=== PATIENT | female | born 1960 | race African-American/Black ===

== ENCOUNTER 2022-10-03 08:46 | Outpatient (REF) | payer OTHER, SELFPAY ==
--- NOTE | ~2022-10-03 | MR_ITS ---
EXAMINATION: MR BRAIN WITHOUT CONTRAST CLINICAL INFORMATION: Seizure disorder. COMPARISON: None. TECHNIQUE: Multiplanar, multisequence imaging of the brain was performed without contrast. FINDINGS: No diffusion abnormalities are identified to suggest an acute infarct. There is [id number] generalized parenchymal volume loss and concordant ex vacuo dilatation of the ventricles. No mass effect or midline shift is seen. No brain parenchymal signal abnormality is noted. No extra-axial fluid collections are seen. The brainstem and cerebellum are normal. The gradient refocused acquisition is normal. The hippocampi are normal in appearance. The craniovertebral junction, marrow signal, and midline structures are normal. The major intracranial flow voids at the level of the [place] are preserved. The dural venous sinus flow voids are maintained. Mild ethmoid sinus mucosal thickening noted. There is a mild amount of fluid in the right mastoid air cells. MR/MR head/brain wo con IMPRESSION: No acute intracranial process. [id number] generalized parenchymal volume loss with concordant ex vacuo dilatation of the ventricles. No hippocampal pathology or epileptogenic focus identified.
== END 2022-10-03 08:47 | disposition home or self-care (01) ==
LOC: HO.MRI 08:46
PROVIDERS: PCP Internal Medicine; Visit Provider Psychiatry & Neurology Neurology
DX: G40.909 Epilepsy, unspecified, not intractable, without status epilepticus (principal)
CPT/HCPCS: 70551

== ENCOUNTER 2023-02-04 13:17 | Outpatient (AMB) | payer OTHER, SELFPAY ==
--- NOTE | 2023-02-04 13:23 | A.OFFVIS_ITS ---
Intake Vital Signs 02/04/23 13:34 Height 5 ft 6 in Weight 223 lb BMI 36.0 BP 148/85 H Blood Pressure Location Lt brachial Position Sitting Pulse 82 Pulse Source Pulse Oximeter Temp 98.5 F Temp Source Oral Pulse Oximetry (%) 98 Intake Visit Reasons: Ref [facility] [address] recurrent UTI Allergies sulindac Allergy (Severe, Verified 02/04/23 13:41) Unknown HPI Ref [facility] [address] recurrent UTI HPI Details She is a referral from [facility] for recurrent painful UTI. She has seen Dr Hong of [place] there in past. She has shaking chills with frequent urination about every three weeks and recurs after takes antibiotics. She has taken Bactrim recently and Amoxicillin. She takes Estrace three times a wekk. She sees Dr at [facility]. She has had seizures and sees Neurology. [facility] Medical History Seizure disorder Recurrent UTI Review of Systems Const All systems reviewed & are unremarkable except as noted in HPI and below Physical Exam Vital Signs: Last Vital Signs Temp 98.5 F 02/04/23 13:34 Pulse 82 02/04/23 13:34 BP 148/85 H 02/04/23 13:34 Pulse Ox 98 02/04/23 13:34 BMI result Body Mass Index 36.0 Const General: cooperative Orientation/consciousness: patient oriented x3 HEENT Head: Yes normal to inspection Mouth: Normal oral and palatal mucosa present Eyes General: appearance normal, both eyes and all related structures Pupils: Equal, round and reactive pupils present Resp Effort & Inspection: normal respiratory effort Cardio Rate: regular rate Rhythm: regular rhythm GI Palpation (GI): Soft to palpation and nontender General: Yes no CVA tenderness Back/Spine/Pelvis Back: no CVA tenderness Skin General skin exam: no rashes or lesions noted Neuro General: patient oriented x3 Cranial nerves: Yes CN's II-XII intact bilaterally and Yes Equal, round and reactive pupils present Extrem General: Yes normal to inspection Psych Appearance: grossly normal Assessment & Plan Assessment & Plan (1) Recurrent UTI: Comment: Recurrent UTI E coli has been seen Antibiotic prophylaxis unlikely to work as resistance will develop. Acidic urinary environment should be encouraged. Also immune system health should be checked. Code(s): N39.0 - Urinary tract infection, site not specified Plan: No antibiotic prophylaxis. Will check urine culture and if negative urinary PCR testing. Methenamine 1 g po bid for acidification. Continue Estrace prn need if helping. Check HIV,Lyme antibody,IgA,IgG and CD4 count. Check urine culture today since symptomatic. Return in one month Call us prn need. Orders: Orders Immunoglobulin A 02/04/23 N39.0 - Urinary tract infection, site not specified HIV Ab/Ag 02/04/23 N39.0 - Urinary tract infection, site not specified Hepatitis C Antibody 02/04/23 N39.0 - Urinary tract infection, site not specified UA w Microscopic 02/04/23 N39.0 - Urinary tract infection, site not specified Urine Culture 02/04/23 N39.0 - Urinary tract infection, site not specified Immunoglobulin G 02/04/23 N39.0 - Urinary tract infection, site not specified Lymphocyte Subset Panel 3 02/04/23 N39.0 - Urinary tract infection, site not specified Hepatitis B Surface Antigen 02/04/23 N39.0 - Urinary tract infection, site not specified Lyme IgG/IgM w/reflex to WB 02/04/23 G40.909 - Epilepsy, unspecified, not intractable, without status epilepticus Syphilis Screen 02/04/23 N39.0 - Urinary tract infection, site not specified Medications: New methenamine hippurate 1 g PO BID 30 days 60 tabs 1RF sulfamethoxazole-trimethoprim 800-160 mg (Bactrim DS) 1 tab PO BID 10 days 20 tabs 0RF Coding Level of Care Code New Pt Level 3 (84886) Diagnoses Recurrent UTI N39.0
[2023-02-04 13:34] VITALS: BP 148/85; PULSE 82; TEMP 36.9; O2SAT 98; BMI 36.0
== END 2023-02-04 14:15 | disposition home or self-care (01) ==
PROVIDERS: PCP Internal Medicine; Visit Provider Internal Medicine
DX: N39.0 Urinary tract infection, site not specified (principal)
CPT/HCPCS: 99203

== ENCOUNTER 2023-02-04 13:17 | Outpatient (REF) | payer OTHER, SELFPAY ==
[2023-02-04 16:22] LABS: Appearance Urine Clear; Color Urine Yellow; Glucose Urine UA Negative (Negative); Leukocyte Esterase Urine Small (1+) (Negative); Nitrite Urine Positive (Negative); PH 6.5 (5.0-9.0); Specific Gravity - Urine 1.015 (1.005-1.025); UMIC TRIGGER UA YES; Urine Blood Trace (Negative); Urine Ketones Negative (Negative); Urine Protein Negative (Neg-Trace)
[2023-02-04 16:27] LABS: Bacteria Urine 4+ (None Seen); Hyaline Casts Urine 0-2 /LPF (0-2); RBC Urine 0-2 /HPF (0-2); Squamous Epithelial Cell Urine 0-2 /HPF (0-2)
[2023-02-05 07:54] LABS: Syphilis Screen Nonreactive (Nonreactive)
[2023-02-05 08:11] LABS: HBsAGNum1 0.24 S/CO (0.00-0.99); HIV AB/AG Nonreactive (Nonreactive); HIV Num 1 0.05 S/CO (0.00-0.99); Hepatitis B Surface Antigen Negative (Negative); ~HepC Num1 0.17 S/CO (0.00-0.79); ~Hepatitis C Antibody Nonreactive (Nonreactive)
[2023-02-05 10:49] LABS: Absolute CD3 Count 1727 cells/uL (840-3060); Absolute CD4 Count 1168 cells/uL (490-1740); Absolute CD8 Count 537 cells/uL (180-1170); Absolute Lymphocytes 2276 cells/uL (850-3900); CD4 CD8 Ratio 2.17 (0.86-5.00); Percent CD3 Cells 76 % (57-85); Percent CD4 Cells 51 % (30-61); Percent CD8 Cells 24 % (12-42)
[2023-02-06 10:54] LABS: Lyme Abs Screen <0.90 index
[2023-02-06 16:43] LABS: Immunoglobulin A 225 mg/dL (47-310); Immunoglobulin G 1300 mg/dL (600-1640)
== END 2023-02-04 13:18 | disposition home or self-care (01) ==
LOC: HO.LAB 13:17
PROVIDERS: PCP Internal Medicine; Visit Provider Internal Medicine
DX: N39.0 Urinary tract infection, site not specified (principal); G40.909 Epilepsy, unspecified, not intractable, without status epilepticus; Z87.440 Personal history of urinary (tract) infections
CPT/HCPCS: 36415; 81001; 82784; 86359; 86360; 86617; 86618; 86780; 86803; 87086; 87088; 87186; 87340; 87389; 99202

== ENCOUNTER 2023-10-08 14:17 | Outpatient (REF) | payer OTHER, SELFPAY ==
[2023-10-08 14:48] LABS: MANUAL DIFF FLAG NO
[2023-10-08 14:54] LABS: Basophils Percent Auto 0.7 % (0-2); Eosinophils Absolute Auto 0.2 X10*3/uL (0.0-0.4); Hematocrit 35.7 % (37.0-47.0); Hemoglobin 11.4 g/dl (12.0-16.0); Imm Gran Abs Auto 0.01 X10*3/uL (0.00-0.03); Imm Gran Pct Auto 0.2 % (0.0-0.4); Lymphocytes Absolute Auto 1.9 X10*3/uL (1.2-4.9); Lymphocytes Percent Auto 33.3 % (20-40); Mean Corpuscular HGB Conc 31.9 g/dl (31.0-35.0); Mean Corpuscular Hemoglobin 29.4 pg (27.0-33.0); Mean Platelet Volume 9.5 fL (9.4-12.3); Monocytes Absolute Auto 0.7 X10*3/uL (0.1-1.2); Monocytes Percent Auto 11.5 % (2-11); Neutrophils Percent Auto 51.3 % (45-73); Platelet Count 342 X10*3/uL (160-400); Red Blood Count 3.88 X10*6/uL (4.20-5.50); Red Cell Distribution Width 17.1 % (11.0-16.0); White Blood Count 5.8 X10*3/uL (4.8-10.8)
[2023-10-08 15:59] LABS: Alanine Aminotransferase 6 U/L (0-31); Albumin Level 3.8 g/dL (3.5-5.0); Alkaline Phosphatase 100 U/L (39-117); Anion Gap 14 (12-20); Aspartate Amino Transferase 13 U/L (5-31); Bilirubin Total 0.4 mg/dL (0.0-1.0); Blood Urea Nitrogen 20 mg/dL (9-16); Calcium 9.1 mg/dL (8.4-10.2); Carbon Dioxide 22 mmol/L (22-29); Chloride 110 mmol/L (96-108); Estimated Glomerular Filt Rate 53; Glucose Random 95 mg/dL (60-115); Potassium 4.1 mmol/L (3.3-5.1); Sodium 142 mmol/L (135-145); Total Protein 7.3 g/dL (6.5-8.0)
[2023-10-08 16:15] LABS: T4 Thyroxine 6.2 ug/dL (4.5-12.0); Thyroid Stimulating Hormone 0.41 uIU/mL (0.32-4.0)
[2023-10-08 16:25] LABS: Folate 4.3 ng/mL (> or = 4.0); Vitamin B12 691 pg/mL (200-900)
== END 2023-10-08 14:18 | disposition home or self-care (01) ==
LOC: HO.LAB 14:17
PROVIDERS: PCP Internal Medicine; Visit Provider Registered Nurse
DX: G31.84 Mild cognitive impairment of uncertain or unknown etiology (principal)
CPT/HCPCS: 36415; 80053; 82607; 82746; 84436; 84443; 85025

== ENCOUNTER 2023-11-11 07:41 | Outpatient (AMB) | payer OTHER, SELFPAY ==
--- NOTE | 2023-11-11 07:53 | A.OFFVIS_ITS ---
Vital Signs 11/11/23 07:55 Height 5 ft 6 in Weight 194 lb 8 oz BMI 31.4 BP 98/66 Blood Pressure Location Rt brachial Position Sitting Respiration 16 Pulse 80 Pulse Source Pulse Oximeter Pulse Oximetry (%) 98 Oxygen Delivery Method Room Air Intake Visit Reasons: NPV: Seizure Disorder Intake Note: New pt presents to the office for consultation for seizure disorder. Adult Nurse Practitioner Required: No Allergies sulindac Allergy (Severe, Verified 11/11/23 07:55) Unknown Medication List - Last Reconciled 11/11/23 by Alicia Suárez MD gabapentin 600 mg PO BID levetiracetam 500 mg PO BID methenamine hippurate 1 g PO BID 30 days HPI Comments Details: 62y/o Right handed female comes for further management of seizures. she also has familial tremors.she is accompanied by her sister who helps with history. SHe started having seizures in 2021 - she was admitted at [facility] initially and was started on levetiracetam 250mg bid after her second seizure. she had about 10 seizures and she was seen by . Her levetiracetam was increased to 500mg bid.she still had seizures - 5 in 2022 . Prior to 2021 she had multiple episodes of passing out. she had 2 seizures in 2023 her levetiracetam dose was increased to 750 mg bid but she is not able to tolerate.she is on 500mg bid now. Her eyes moves to left , hands shake , funny noise , passes out for 1-2 minutes. she wakes up and argues that she did not have a seizure, refuses to go to hospital .she had 1 episode of urinary incontinence and denies tongue biting. she has mood disorder - does not have a psychiatry or psyhcology she does not drive [facility] Medical History Anxiety Depression Benign familial tremor Seizure disorder Recurrent UTI Surgical History H/O gastric bypass H/O: knee surgery Social History Household Members: Family Housing: Apartment Alcohol intake: never Patient Tobacco Use Status: Never used Tobacco Physical Exam Vital Signs: Last Vital Signs Pulse 80 11/11/23 07:55 Resp 16 11/11/23 07:55 BP 98/66 11/11/23 07:55 Pulse Ox 98 11/11/23 07:55 Oxygen Delivery Method Room Air 11/11/23 07:55 BMI result Body Mass Index 31.4 Const General: cooperative, healthy appearing, comfortable and anxious Nutritional Appearance: average body habitus Orientation/consciousness: patient oriented x3 Eyes Pupils: Equal, round and reactive pupils present Neuro Other: mild tremors left UE General: patient oriented x3, tone normal, moves all extremities and no focal motor deficits Cranial nerves: Yes Facial sensation intact/muscles of mastication intact, Yes Equal, round and reactive pupils present, Yes Bilaterally intact EOM present, Yes Nystagmus not present, Yes Normal facial strength present, Yes Midline tongue present, Yes Symmetric palate elevation present and Yes Ability to bilaterally elevate shoulders present Cognition (Neuro): normal cognition Gait exam (Neuro): Normal gait present Motor exam (neuro): 5/5 motor strength present throughout and Normal motor muscle tone present throughout Deep tendon reflexes (DTR's): Right triceps reflex intensity grade: 2+, Left triceps reflex intensity grade: 2+, Rt Biceps (C5, C6): 2+, Left biceps reflex intensity grade: 2+, Right brachioradialis reflex intensity grade: 2+, Left brachioradialis reflex intensity grade: 2+, Right patellar reflex intensity grade: 2+ and Left patellar reflex intensity grade: 2+ Coordination: [id number] test normal Assessment & Plan Assessment & Plan (1) Seizure disorder: Comment: poorly controlled Code(s): G40.909 - Epilepsy, unspecified, not intractable, without status epilepticus Category: Medical (2) Benign familial tremor: Comment: mild Code(s): G25.0 - Essential tremor Category: Medical (3) Depression: Code(s): F32.A - Depression, unspecified Category: Medical (4) Anxiety: Code(s): F41.9 - Anxiety disorder, unspecified Category: Medical Plan She is concerned about behavioral side effects of levetiracetam and has decreased the dose to 500mg bid I will trial her on tegretol XR 200mg bid and titrate upto 800 mg bid and wean of levetiracetam continue levetiracetam 500mg bid for now Pyridoxine 50mg qd labs form PCP for review Reviewed MRI EEG Refer to [facility] epilepsy clinic [facility] for mood Orders: Orders EEG electroencephalogram Today G40.909 - Epilepsy, unspecified, not intractable, without status epilepticus Referrals Neurology Referral G40.909 - Epilepsy, unspecified, not intractable, without status epilepticus Medications: New pyridoxine (vitamin B6) 50 mg PO DAILY 30 tabs 6RF carbamazepine ER (Tegretol XR) 200 mg PO BID 60 tabs 6RF Coding Level of Care Code New Pt Level 4 (42936) Complex EM visit Add On G2211 Diagnoses Seizure disorder G40.909 Benign familial tremor G25.0 Depression F32.A Anxiety F41.9
[2023-11-11 07:55] VITALS: BP 98/66; PULSE 80; RESP 16; O2SAT 98; BMI 31.4
== END 2023-11-11 08:54 | disposition home or self-care (01) ==
PROVIDERS: PCP Internal Medicine; Visit Provider Psychiatry & Neurology Neurology
DX: G40.909 Epilepsy, unspecified, not intractable, without status epilepticus (principal); G25.0 Essential tremor; F32.A Depression, unspecified; F41.9 Anxiety disorder, unspecified
CPT/HCPCS: 99204; G2211

== ENCOUNTER → 2023-11-11 07:41 | Outpatient (BNVA) | payer OTHER, SELFPAY | PROVIDERS: PCP Internal Medicine; Visit Provider Psychiatry & Neurology Neurology | DX: G40.909 Epilepsy, unspecified, not intractable, without status epilepticus (principal); G25.0 Essential tremor; F32.A Depression, unspecified; F41.9 Anxiety disorder, unspecified | CPT/HCPCS: 99202 ==

== ENCOUNTER 2023-12-17 08:18 | Outpatient (AMB) | payer OTHER, SELFPAY ==
[2023-12-17 08:22] VITALS: BP 132/88; BMI 31.3
--- NOTE | 2023-12-17 08:22 | A.OFFVIS_ITS ---
Vital Signs 12/17/23 08:22 Height 5 ft 6 in Weight 194 lb BMI 31.3 BP 132/88 Blood Pressure Location Rt brachial Position Sitting Intake Visit Reasons: 1 mo f/u Intake Note: Patient presents for follow up Allergies sulindac Allergy (Severe, Verified 12/17/23 08:24) Unknown Medication List - Last Reconciled 12/17/23 by Alicia Suárez MD carbamazepine ER (Tegretol XR) 200 mg PO BID gabapentin 600 mg PO BID levetiracetam 500 mg PO BID methenamine hippurate 1 g PO BID 30 days pyridoxine (vitamin B6) 50 mg PO DAILY HPI Comments Details: 63y/o Right handed female comes for follow up of seizures.she was started on te gretol few weeks ago but she could not tolerate - increased tremors, caused dizziness .she is scheduled at [facility] epilepsy clinic Feb 242024.No seizures since last visit. she has not seen a psychiatrist or psychologist yet History form initial visit- she also has familial tremors.she is accompanied by her sister who helps with history. SHe started having seizures in 2021 - she was admitted at [facility] initially and was started on levetiracetam 250mg bid after her second seizure. she had about 10 seizures and she was seen by . Her levetiracetam was increased to 500mg bid.she still had seizures - 5 in 2022 . Prior to 2021 she had multiple episodes of passing out. she had 2 seizures in 2023 her levetiracetam dose was increased to 750 mg bid but she is not able to tolerate.she is on 500mg bid now. Her eyes moves to left , hands shake , funny noise , passes out for 1-2 minutes. she wakes up and argues that she did not have a seizure, refuses to go to hospital .she had 1 episode of urinary incontinence and denies tongue biting. she has mood disorder - does not have a psychiatry or psyhcology she does not drive [facility] Medical History Anxiety Depression Benign familial tremor Seizure disorder Recurrent UTI Surgical History H/O gastric bypass H/O: knee surgery Social History Household Members: Family Housing: Apartment Alcohol intake: never Patient Tobacco Use Status: Never used Tobacco Physical Exam Vital Signs: Last Vital Signs BP 132/88 12/17/23 08:22 BMI result Body Mass Index 31.3 Const General: cooperative, healthy appearing, comfortable and anxious Nutritional Appearance: average body habitus Orientation/consciousness: patient oriented x3 Eyes Pupils: Equal, round and reactive pupils present Neuro Other: mild tremors left UE General: patient oriented x3, tone normal, moves all extremities and no focal motor deficits Cranial nerves: Yes Facial sensation intact/muscles of mastication intact, Yes Equal, round and reactive pupils present, Yes Bilaterally intact EOM present, Yes Nystagmus not present, Yes Normal facial strength present, Yes Midline tongue present, Yes Symmetric palate elevation present and Yes Ability to bilaterally elevate shoulders present Cognition (Neuro): normal cognition Gait exam (Neuro): Normal gait present Motor exam (neuro): 5/5 motor strength present throughout and Normal motor muscle tone present throughout Coordination: [id number] test normal Assessment & Plan Assessment & Plan (1) Seizure disorder: Comment: poorly controlled Code(s): G40.909 - Epilepsy, unspecified, not intractable, without status epilepticus Category: Medical (2) Benign familial tremor: Comment: mild Code(s): G25.0 - Essential tremor Category: Medical (3) Depression: Code(s): F32.A - Depression, unspecified Category: Medical (4) Anxiety: Code(s): F41.9 - Anxiety disorder, unspecified Category: Medical Plan She is concerned about behavioral side effects of levetiracetam and has decreased the dose to 500mg bid I will trial her on lamotrigine 25 mg bid continue levetiracetam 500mg bid for now Pyridoxine 50mg qd labs form PCP for review Reviewed MRI EEG [facility] epilepsy clinic Feb 26 2024 N for mood Multiple sensitivities to medications- Depakote Tegretol Trazodone Medications: New lamotrigine 25 mg PO BID 60 tabs 0RF 30 days Discontinued carbamazepine ER (Tegretol XR) Discontinued Reason: Patient no longer taking 200 mg PO BID 60 tabs 6RF Coding Level of Care Code Est Pt Level 4 (40984) Complex EM visit Add On G2211 Diagnoses Seizure disorder G40.909 Benign familial tremor G25.0 Depression F32.A Anxiety F41.9
== END 2023-12-17 08:56 | disposition home or self-care (01) ==
PROVIDERS: PCP Internal Medicine; Visit Provider Psychiatry & Neurology Neurology
DX: G40.909 Epilepsy, unspecified, not intractable, without status epilepticus (principal); G25.0 Essential tremor; F32.A Depression, unspecified; F41.9 Anxiety disorder, unspecified
CPT/HCPCS: 99214; G2211

== ENCOUNTER → 2023-12-17 08:18 | Outpatient (BNVA) | payer OTHER, SELFPAY | PROVIDERS: PCP Internal Medicine; Visit Provider Psychiatry & Neurology Neurology | DX: G40.909 Epilepsy, unspecified, not intractable, without status epilepticus (principal); G25.0 Essential tremor; F32.A Depression, unspecified; F41.9 Anxiety disorder, unspecified | CPT/HCPCS: 99212 ==

== ENCOUNTER 2024-02-09 08:48 | Outpatient (AMB) | payer OTHER, SELFPAY ==
--- NOTE | 2024-02-09 08:50 | MHC.OFFVIS ---
Vital Signs 02/09/24 08:51 Height 5 ft 6 in Weight 199 lb BMI 32.1 BP 102/78 Blood Pressure Location Lt brachial Position Sitting Pulse 81 Pulse Source Pulse Oximeter Pulse Oximetry (%) 97 Oxygen Delivery Method Room Air Intake Visit Reasons: 2mon follow up Manager Private Required: No Accompanied by: Self / Same As Patient Allergies sulindac Allergy (Severe, Verified 02/09/24 08:54) Unknown Do you need a note to return to daycare/school/sports/work: No HPI Comments Details: 63 year old female f/u of seizure like activity. Denies any seizures since her last visit in 12/2023. June2023 was her last seizure, lasted seconds, gets dizzy and fell to the ground, then feels disoriented, sister says her eyes roll up to the back of head r. side and two episodes of incontinence. She denies biting tongue and or drooling. She has pauses in speech, cognitive decline, forgetful, history of familial benign tremors bilaterally hands. Writes down everything she needs to accomplish, tasks, shopping lists, medicines. Frustrated with her speech and feels like she is not herself. Lamictal 25mg PO BID makes her sweat profusively, nausea, dizziness, gagging reflex. She takes Keppra and wants to continue this one 500mg PO BID. Goes to sleep at 11 and wakes up at six with two bathroom breaks, fragmented sleep, wakes up confused with morning headaches that last for hours and excessive day time fatigue. Migraines for the last 2 weeks frontal, migrate to the back of head, pulsating. Denies photophobia, phonophobia or auras. Denies parasomnias, hallucinations, abnormal sleep behavior. Mood is okay. Diet is poor, and sleep fragmented d/t some familial concerns with her children. [facility] - pscychology would like a referral. She is motivated and does word puzzles, suduko and wants to start volunteering but has no energy. Disabled lives alone. 12/2023 EEG [facility] Normal did not capture any electrical discharges or activities. Low voltage anteriorly/ posteriorly, however normal EEG. Holter EEG - possilby brain damage from falls - per Dr. Durán MRI 09/2022 [facility] Normal MRI with some volume loss, normal aging changes. [facility] Medical History Anxiety Depression Benign familial tremor Seizure disorder Recurrent UTI Surgical History H/O gastric bypass H/O: knee surgery Social History Household Members: Family Housing: Apartment Alcohol intake: never Patient Tobacco Use Status: Never used Tobacco Review of Systems Const All systems reviewed & are unremarkable except as noted in HPI and below Physical Exam Vital Signs: Last Vital Signs Pulse 81 02/09/24 08:51 BP 102/78 02/09/24 08:51 Pulse Ox 97 02/09/24 08:51 Oxygen Delivery Method Room Air 02/09/24 08:51 BMI result Body Mass Index 32.1 Const General: cooperative, comfortable and no acute distress Nutritional Appearance: average body habitus and obese HEENT Face and sinus: Yes face symmetric Teeth and gingiva: other ([place] score of 4) Eyes Pupils: Equal, round and reactive pupils present Neck Neck: Yes full ROM Resp Effort & Inspection: normal respiratory effort and able to speak in complete sentences Neuro Cranial nerves: Yes CN's II-XII intact bilaterally, Yes Facial sensation intact/muscles of mastication intact, Yes Equal, round and reactive pupils present, Yes Normal accommodation reflex present and Yes Bilaterally intact EOM present Motor exam (neuro): 5/5 motor strength present throughout and Normal motor muscle tone present throughout Deep tendon reflexes (DTR's): Right triceps reflex intensity grade: 2+, Left triceps reflex intensity grade: 2+, Rt Biceps (C5, C6): 2+, Left biceps reflex intensity grade: 2+, Right brachioradialis reflex intensity grade: 2+, Left brachioradialis reflex intensity grade: 2+, Right patellar reflex intensity grade: 2+ and Left patellar reflex intensity grade: 2+ Results Reviewed Results Reviewed: MRI 2022 Normal MRI [facility] EEG 12/2023 Holter monitor - no electrical activity Low voltage anteriorly / posteriorly. Labs UTI - chronic Assessment & Plan Assessment & Plan (1) Migraines: Code(s): G43.909 - Migraine, unspecified, not intractable, without status migrainosus Category: Medical Qualifiers: Migraine type: unspecified Qualified Code(s): G43.919 - Migraine, unspecified, intractable, without status migrainosus (2) Seizure disorder: Comment: poorly controlled Code(s): G40.909 - Epilepsy, unspecified, not intractable, without status epilepticus Category: Medical (3) Fatigue due to sleep pattern disturbance: Code(s): R53.83 - Other fatigue; G47.9 - Sleep disorder, unspecified Category: Medical (4) Anxiety: Code(s): F41.9 - Anxiety disorder, unspecified Category: Medical Plan N - CBTI Anxiety Stress management and coping strategies to minimize triggers. Sleep Study Polysomnograph in lab, patient has seizure like activity disorder. Patient education: Getting 7-8 hours of sleep, eating a well balanced diet and recognizing triggers will help to avoid confusion, minimize stress. Getting fresh air, walking for 10 - 30 min daily, will help to keep you actively engaged with your social support group. Sumatriptan 25mg PO as needed with onset of migraine, may take one more tablet within 2-4 hours if migraine does not abort. Do not exceed more than 2 tablets in a 24 hour period. Migraines, use a migraine diary and record day and time of migraines and how long they last. Follow up after sleep study. Call the office or send a portal message with questions. Tegretol did not work well. Lamictal did not work well. N/V/ Dizziness and sweating, gag reflex. Will continue on Keppra 500mg PO BID as she has been seizure free. Orders: Orders RT PSG in-lab sleep study Today G25.0 - Essential tremor, G40.909 - Epilepsy, unspecified, not intractable, without status epilepticus Referrals Behavioral Health Referral F41.9 - Anxiety disorder, unspecified, G47.9 - Sleep disorder, unspecified, R53.83 - Other fatigue Medications: New sumatriptan succinate Take one tablet at the onset of migraine. If the headache does not abort you may take one more tablet with in 2-4 hours. Do not exceed 2 tablets in a 24 hour period. 25 mg PO ONCE 30 days PRN 14 tabs 0RF migraine headache G43.909 - Migraine, unspecified, not intractable, without status migrainosus Changed From levetiracetam 500 mg PO BID To levetiracetam 500 mg PO BID daily. 500 mg PO BID 60 tabs 3RF Coding Level of Care Code Est Pt Level 4 (61606) Diagnoses Intractable migraine without status migrainosus, unspecified migraine type G43.919 Migraine type: unspecified Seizure disorder G40.909 Fatigue due to sleep pattern disturbance R53.83; G47.9 Anxiety F41.9 Time Spent (min) 30 Comment Worsening
[2024-02-09 08:51] VITALS: BP 102/78; PULSE 81; O2SAT 97; BMI 32.1
== END 2024-02-09 09:44 | disposition home or self-care (01) ==
PROVIDERS: PCP Internal Medicine; Visit Provider Physician Assistant Medical
DX: G43.919 Migraine, unspecified, intractable, without status migrainosus (principal); G40.909 Epilepsy, unspecified, not intractable, without status epilepticus; R53.83 Other fatigue; G47.9 Sleep disorder, unspecified; F41.9 Anxiety disorder, unspecified
CPT/HCPCS: 99214

== ENCOUNTER → 2024-02-09 08:48 | Outpatient (BNVA) | payer OTHER, SELFPAY | PROVIDERS: PCP Internal Medicine; Visit Provider Physician Assistant Medical | DX: G43.919 Migraine, unspecified, intractable, without status migrainosus (principal); G40.909 Epilepsy, unspecified, not intractable, without status epilepticus; R53.83 Other fatigue; G47.9 Sleep disorder, unspecified; F41.9 Anxiety disorder, unspecified | CPT/HCPCS: 99212 ==

== ENCOUNTER 2024-06-10 09:13 | Outpatient (AMB) | payer OTHER, SELFPAY ==
[2024-06-10 09:25] VITALS: BP 106/74; PULSE 85; O2SAT 96; BMI 31.5
--- NOTE | 2024-06-10 09:25 | A.OFFVIS_ITS ---
Vital Signs 06/10/24 09:25 Height 5 ft 6 in Weight 195 lb BMI 31.5 BP 106/74 Blood Pressure Location Lt brachial Position Sitting Pulse 85 Pulse Source Pulse Oximeter Pulse Oximetry (%) 96 Oxygen Delivery Method Room Air Intake Visit Reasons: 4 mo follow up Intake Note: patient following up sleep study not done per OF patient was unable to contact after several attempts. Patient states both hands have start having tremors and also her face has at time spasms. Allergies sulindac Allergy (Severe, Verified 06/10/24 09:27) Unknown HPI Comments Details: 63 year old female f/u of seizure like activity, is a patient of Dr. Osorio at [place]. She denies any seizure like activiity since 06/2023 and she is taking Keppra 500mg PO BID. She would like to change her PCP to [facility]. She was not able to complete her sleep study due to pain and recovering from a cholecystectomy at [facility] April 2024. She goes to sleep at 11pm and wakes up at 6am, confused and disoriented in the morning, with headaches that last up to 2 hours. She continues to have fragmented sleep and excessive daytime fatigue. She says June2023 was her last seizure, lasted seconds, she got dizzy and fell to the ground, then felt disoriented, her sister says her eyes rolled up to the back of head r. side and two episodes of urinary incontinence. She denies biting tongue and or drooling. She has pauses in speech, gets frustrated and feels like she is not herself, reports cognitive decline, seems to be very forgetful, has to write everything down if she is to accomplish completing any tasks she needs shopping lists and reminders, she lately has been forgetting to take her medication. She has a history of familial benign tremors bilaterally hands. Migraines for the last 2 weeks frontal, migrate to the back of head, pulsating.Denies photophobia, phonophobia or auras. Denies parasomnias, hallucinations, abnormal sleep behavior. Her mood is irritable today, her diet is poor, and she says I know I need to complete my sleep study . She is motivated and does word puzzles, suduko and wants to start volunteering but has no energy. She is disabled lives alone and we spoke about health bracelet or access to emergency services. She says she has carpal tunnels syndrome bilaterally and tried b12, b6, and b1 and it was not helpful, her hands still go numb at night and twitch especially if she is texting. She has a family history of dementia father and will look into testing at next visit. [facility] Medical History Anxiety Depression Benign familial tremor Seizure disorder Recurrent UTI Surgical History Hx of cholecystectomy H/O gastric bypass H/O: knee surgery Social History Household Members: Family Housing: Apartment Alcohol intake: never Patient Tobacco Use Status: Never used Tobacco Physical Exam Vital Signs: Last Vital Signs Pulse 85 06/10/24 09:25 BP 106/74 06/10/24 09:25 Pulse Ox 96 06/10/24 09:25 Oxygen Delivery Method Room Air 06/10/24 09:25 BMI result Body Mass Index 31.5 Const General: cooperative, comfortable and no acute distress Nutritional Appearance: average body habitus and obese HEENT Face and sinus: Yes face symmetric Teeth and gingiva: other ([place] score of 4) Eyes Pupils: Equal, round and reactive pupils present Neck Neck: Yes full ROM Resp Effort & Inspection: normal respiratory effort and able to speak in complete sentences Neuro Cranial nerves: Yes CN's II-XII intact bilaterally, Yes Facial sensation intact/muscles of mastication intact, Yes Equal, round and reactive pupils present, Yes Normal accommodation reflex present and Yes Bilaterally intact EOM present Motor exam (neuro): 5/5 motor strength present throughout and Normal motor muscle tone present throughout Deep tendon reflexes (DTR's): Right triceps reflex intensity grade: 2+, Left triceps reflex intensity grade: 2+, Rt Biceps (C5, C6): 2+, Left biceps reflex intensity grade: 2+, Right brachioradialis reflex intensity grade: 2+, Left brachioradialis reflex intensity grade: 2+, Right patellar reflex intensity grade: 2+ and Left patellar reflex intensity grade: 2+ Assessment & Plan Assessment & Plan (1) Twitching: Code(s): R25.3 - Fasciculation Category: Medical (2) Sleep difficulties: Code(s): G47.9 - Sleep disorder, unspecified Category: Medical (3) Migraines: Code(s): G43.909 - Migraine, unspecified, not intractable, without status migrainosus Category: Medical Qualifiers: Migraine type: unspecified Qualified Code(s): G43.919 - Migraine, unspecified, intractable, without status migrainosus (4) Seizure disorder: Comment: poorly controlled Code(s): G40.909 - Epilepsy, unspecified, not intractable, without status epilepticus Category: Medical (5) Fatigue due to sleep pattern disturbance: Code(s): R53.83 - Other fatigue; G47.9 - Sleep disorder, unspecified Category: Medical (6) Anxiety: Code(s): F41.9 - Anxiety disorder, unspecified Category: Medical (7) Carpal tunnel syndrome on both sides: Code(s): G56.03 - Carpal tunnel syndrome, bilateral upper limbs Category: Medical (8) Excessive daytime sleepiness: Code(s): G47.19 - Other hypersomnia Category: Medical (9) Irritable mood: Code(s): R45.4 - Irritability and anger Category: Medical (10) Muscle twitch: Code(s): R25.3 - Fasciculation Category: Medical Plan Fatigue: BHN - CBTI Anxiety, and mood irritability.Stress management and coping strategies to minimize triggers. Seizure like disorder continue keppra 500mg PO BID. Sleep Study Polysomnograph in lab, patient has seizure like activity disorder. Patient education: Getting 7-8 hours of sleep, eating a well balanced diet and recognizing triggers will help to avoid confusion, minimize stress. Getting fresh air, walking for 10 - 30 min daily, will help to keep you actively engaged with your social support group. Sumatriptan 25mg PO as needed with onset of migraine, may take one more tablet within 2-4 hours if migraine does not abort. Do not exceed more than 2 tablets in a 24 hour period. Migraines, use a migraine diary and record day and time of migraines and how long they last. Follow up after PSG Call the office or send a portal message with questions. Tegretol did not work well. Lamictal did not work well. N/V/ Dizziness and sweating, gag reflex. F/U in 3 months after sleep study. Orders: Orders Complete Blood Count no Diff Today G47.9 - Sleep disorder, unspecified, R53.83 - Other fatigue Ferritin Today G47.19 - Other hypersomnia, G47.9 - Sleep disorder, unspecified, R53.83 - Other fatigue Homocysteine Today G47.9 - Sleep disorder, unspecified, R53.83 - Other fatigue RT home sleep study Today G47.19 - Other hypersomnia Comprehensive Met. Panel Today G47.9 - Sleep disorder, unspecified, R53.83 - Other fatigue Methylmalonic Acid Today G47.9 - Sleep disorder, unspecified, R53.83 - Other fatigue Vitamin B12 and Folate Today G47.19 - Other hypersomnia, G47.9 - Sleep disorder, unspecified, R53.83 - Other fatigue Vitamin D 25-OH Total Today G47.9 - Sleep disorder, unspecified, R53.83 - Other fatigue TSH reflex Free T4 Today G47.19 - Other hypersomnia, G47.9 - Sleep disorder, unspecified Medications: New magnesium oxide 400mg magnesium daily at night. 400 mg PO DAILY 30 tabs 2RF sleep disturbances MDD 400mg PO G47.9 - Sleep disorder, unspecified magnesium oxide 400mg magnesium daily at night. 400 mg PO DAILY 30 tabs 2RF sleep disturbances MDD 400mg PO G47.9 - Sleep disorder, unspecified [wrist braces] As directed, please check patient for size of hands for carpal tunnels syndrome bilateral hand numbness and twitching at night. Wear at night for at least 4-6 hours 1 ea 0RF R/ and L/ hand wrist braces for Carpal Tunnels G56.03 - Carpal tunnel syndrome, bilateral upper limbs Changed From pyridoxine (vitamin B6) 50 mg PO DAILY 30 tabs 6RF R25.3 - Fasciculation To pyridoxine (vitamin B6) 100mg of B6 (pyridoxine) daily at night. 50 mg (1/2 x 100 mg) PO DAILY 30 tabs 6RF twitching of hands bilaterally MDD 100mg R25.3 - Fasciculation Refilled levetiracetam 500 mg PO BID daily. 500 mg PO BID 60 tabs 3RF sumatriptan succinate Take one tablet at the onset of migraine. If the headache does not abort you may take one more tablet with in 2-4 hours. Do not exceed 2 tablets in a 24 hour period. 25 mg PO ONCE 30 days PRN 14 tabs 0RF migraine headache G43.909 - Migraine, unspecified, not intractable, without status migrainosus Patient Instructions: Sleep Hygiene provided: set a scheduled bedtime and wake time to help regulate the circadian rhythm and balance the release of pituitary hormones. Sleep in a dark room, temperatures below 68 degrees, and no devices n bed. Limit caffeinated products 6 hours prior to bed, and limit fluids 2-4 hours prior to bed. Gentle night yoga, diffusing essential oils, and playing soft music can be relaxing. Carpal Tunnels wrist braces for bilateral hand twitching and numbness at night. Headaches continue Sumatriptan as directed. F/U after PSG in lab. BHN for mood irritability. Cognitive decline will assess at next visit with MMSE. Coding Level of Care Code Est Pt Level 4 (49800) Complex EM visit Add On G2211 Diagnoses Twitching R25.3 Sleep difficulties G47.9 Intractable migraine without status migrainosus, unspecified migraine type G43.919 Migraine type: unspecified Seizure disorder G40.909 Fatigue due to sleep pattern disturbance R53.83; G47.9 Anxiety F41.9 Carpal tunnel syndrome on both sides G56.03 Excessive daytime sleepiness G47.19 Irritable mood R45.4 Muscle twitch R25.3 Time Spent (min) 40 Comment
--- OUTSIDE RECORDS SUMMARY | 2024-06-10 09:42 | XMS_ITS | Encounter Summary ---
Author Organization [facility] Address [address] [place] [address] Care Team Providers Care Land Inspector Name Role Phone Nica Cage MD Primary Care Prov ider Encounter Details Date Type Department Care Team (Late Contact Info) Description 02/11/[address] [facility] - Main Lab [address] [facility] [place] [phone] Jc Nuñez PA [address] [facility] [address] [place] [address] Encounter for screening for malignant neoplasm of colon Social History Tobacco Use Types Packs/Day Years Used Date Smoking Tobacco: Never Smokeless Tobacco: Never Alcohol Use Standard Drinks/Week Comments Yes 0 (1 standard drink = 0.6 oz pur e alcohol) Comments Unknown Sex and Gender Information Value Date Recorded Sex Assigned at Not on file Legal Sex Female 10:27 AM EDT Gender Identity Not on file Sexual Orientation Not on file documented as of this encounter Plan of Treatment Upcoming Encounters Date Type Department Care Team (Late Contact Info) Description 07/07/2024 10:00 AM EDT Consult Adult Medicine [address] [address] Nica Cage MD [address] [place] [address] 12/28/2024 8:00 AM EST Appointment Radiology Department - [address] [phone] documented as of this encounter Visit Diagnoses Diagnosis Encounter for screening for malignant neoplasm of colon Encounter for screening mammogram for breast cancer documented in this encounter Care Teams Land Inspector Relationship Specialty Start Date End Date Nica Cage MD [address] [place] [id number] PCP - General Internal Medicine 01/22/24 documented as of this encounter
--- OUTSIDE RECORDS SUMMARY | 2024-06-10 09:42 | XMS_ITS | Clinical Summary ---
Author Organization [facility] Address [address] [place] [address] Care Team Providers Care Senior Principal Process Engineer Name Role Phone Unavailable Primary Care Provider Unavailabl e Allergies No known active allergies Medications Medication Sig Dispensed Refills Start Date End Date Status cefpodoxime (VANTIN) 200 MG tablet Take 1 tablet (200 mg total) by mouth daily. 4 tablet 0 04/15/2021 Active Active Problems Problem Noted Date Diagnosed Date Altered mental state 04/15/2021 Opioid abuse 04/15/2021 Social History Tobacco Use Types Packs/Day Years Used Date Smoking Tobacco: Never Assessed Sex and Gender Information Value Date Recorded Sex Assigned at Female 04/15/2021 1:02 AM EST Gender Identity Not on file Sexual Orientation Not on file Job Start Date Occupation Industry Not on file Not on file Not on file Last Filed Vital Signs Vital Sign Reading Time Taken Comments Blood Pressure 129/82 04/15/2021 3:10 PM EST Pulse 94 04/15/2021 3:10 PM EST Temperature 36.9 ??C (98.5 ??F) 04/15/2021 3:10 PM ES T Respiratory Rate 18 04/15/2021 3:10 PM EST Oxygen Saturation 97% 04/15/2021 3:10 PM EST Inhaled Oxygen Concentration - - Weight 87.1 kg (192 lb) 04/15/2021 12:09 PM EST Height 170.2 cm (5' 7 ) 04/15/2021 12:09 PM EST Body Mass Index 30.07 04/15/2021 12:09 PM EST Plan of Treatment Health Maintenance Due Date Last Done Comments Hepatitis C Screening 1962 COVID-19 Vaccine (#1) 05/18/1963 Depression Screening 1974 BMI Counseling 1980 Preventative Health Evaluation 1980 Cervical Cancer Screening (Pap Smear) 11/18/1983 Colon Cancer Screening (Colonoscopy) 11/18/2007 Breast Cancer Screening (Mammogram) 2012 Shingrix-Zoster Vaccine (1 o f 2) 2012 DTap / Tdap / Td (2 - Td or Tdap) 11/09/2019 11/08/2009, 08/16/2007 Influenza Vaccine (#1) 2023 5, 11/08/2009 RSV Adult > 60+ Yrs or (1 - 1-dose 75+ series) 2037 Hepatitis B Vaccines Aged Out No long er eligible based on patient's age to complete this topic Pneumococcal Vaccine Aged Out No long er eligible based on patient's age to complete this topic RSV Ped < 20 months Aged Out No longe r eligible based on patient's age to complete this topic Advance Directives For more information, please contact: [phone] Latest Code Status on File Code Status Date Activated Date Inactivated Comments Full Code 04/15/2021 4:39 AM 04/16/2021 1:37 AM This code status was ascertained in the following way: unable to obtain from patient and no next of kin available .
--- OUTSIDE RECORDS SUMMARY | 2024-06-10 09:42 | XMS_ITS | Continuity of Care Document ---
Author Organization [facility] Address [address] [place] [address] [address] [place] [address]- Care Team Providers Care Deck Scaler Name Role Phone Doroteo Bullock MD, Nica Michaud Primary Care Physicia n Encounter [facility] Date(s): 05/09/24 - 06/08/[address] [place] [address]- Encounter Type: Triage Allergies, Adverse Reactions, Alerts No Known Allergies Immunizations Given and Recorded Vaccine Date Status Refusal Reason SARS-CoV-2 mRNA (ysfster-ixic-cjbau) vax 03/13/21 Recorded SARS-CoV-2 (COVID-19) mRNA BNT-162b2 vac 06/27/20 Recorded SARS-CoV-2 (COVID-19) mRNA BNT-162b2 vac 06/06/20 Recorded tetanus-diphtheria toxoids (Td) 1 08/16/07 Given 1Admin Note: vis 08/02/93 Medications celecoxib 200 mg oral capsule = 200 mg, By Mouth, Daily, 0 Refills, Maintenance, 09/12/23 8:33:00 AM EDT, Capsule, Partial fill upon patient request if the prescription is for a schedule II opioid drug. Start Date: 09/12/23 Status: Ordered Repeat number: 1 docusate sodium 100 mg oral capsule 100 mg, 1, capsule, By Mouth, 2 times a day, # 60 capsule, Refills 0, Tot. Refills 0, Maintenance, 09/12/23 8:29:00 AM EDT, Route to Pharmacy Electronically, [facility], Partial fill upon patient request if the prescription is for a schedule II opioid drug., 168, cm, 09/12/23 6:57:00 ED T, Height, 86, kg, 09/11/23 18:49:00 EDT, Dry Weight Start Date: 09/12/23 Status: Ordered Quantity: 60.0 Unit: capsule Repeat number: 1 Ecotrin 325 mg oral delayed release tablet 1 tablet = 325 mg, By Mouth, 2 times a day, # 60 tablet, 0 Refills, Maintenance, 09/12/23 8:29:00 AMEDT, EC Tablet, [facility], Partial fill upon patient request if the prescription is for a schedule II opioid drug., 168, cm, 09/12/23 6:57:00 EDT, Height, 86, kg, 09/11/23 18:49:00 EDT, Dry Weight Start Date: 09/12/23 Stop Date: 10/12/23 Status: Ordered Quantity: 60.0 Unit: tablet Repeat number: 1 gabapentin 600 mg oral tablet 1 tablet = 600 mg, By Mouth, 4 times a day, TAKE 1 TABLET BY MOUTH FOUR TIMES A DAY FOR 30 DAYS Start Date: 06/01/23 Status: Ordered Repeat number: 1 levETIRAcetam 500 mg oral tablet 1 tablet = 500 mg, By Mouth, 2 times a day, TAKE 1 TABLET BY MOUTH TWICE A DAY FOR 30 DAYS Start Date: 06/01/23 Status: Ordered Repeat number: 1 MiraLax Powder 1 pack/packet = 17 Gm, By Mouth, Daily, PRN Constipation, 0 Refills, Maintenance, 09/12/23 8:34:00 AM EDT, Powder, Partial fill upon patient request if the prescription is for a schedule II opioid drug. Start Date: 09/12/23 Status: Ordered Repeat number: 1 pantoprazole 40 mg oral delayed release tablet = 40 mg, By Mouth, Daily, # 30 tablet, 0 Refills, Maintenance, 09/12/23 8:29:00 AM EDT, EC Tablet, 168, cm, 09/12/23 6:57:00 EDT, Height, 86, kg, 09/11/23 18:49:00 EDT, Dry Weight Start Date: 09/12/23 Stop Date: 10/12/23 Status: Ordered Quantity: 30.0 Unit: tablet Repeat number: 1 senna 187 mg oral tablet 1 tablet = 8.6 mg, By Mouth, Daily at bedtime, PRN as needed for constipation, 0 Refills, Maintenance, 09/12/23 8:34:00 AM EDT, Tablet, Partial fill upon patient request if the prescription is for a schedule II opioid drug. Start Date: 09/12/23 Status: Ordered Repeat number: 1 SUMAtriptan 100 mg oral tablet TAKE 1 TABLET AT ONSET OF MIGRAINE ORALLY EVERY 4 HOURS UPTO TWICE A DAY 30 DAYS Start Date: 06/01/23 Status: Ordered Repeat number: 1 tiZANidine 4 mg oral tablet 2 mg, By Mouth, 3 times a day, PRN, # 42 tablet, Refills 0, Tot. Refills 0, Maintenance, Spasm, 09/12/23 8:30:00 AM EDT, Route to Pharmacy Electronically, [facility], Partial fill upon patient request if the prescription is for a schedule II opioid drug., 168, cm, 09/12/23 6:57:00 EDT,Height, 86, kg, 09/11/23 18:49:00 EDT, Dry Weight Start Date: 09/12/23 Stop Date: 09/26/23 Status: Ordered Quantity: 42.0 Unit: tablet Repeat number: 1 Problem List Condition Confirmation Course Effective Dates Status H ealth Status Informant Carotid atherosclerosis without stenosis 1 Confirmed Active Impaired glucose metabolism 2 Confirmed Active History of depression Confirmed Active History of nephrolithiasis Confirmed Active History of right total knee replacement Confirmed Active History of syncope Confirmed Active Myalgia/myositis -pelvis/thigh 3 Confirmed Active Obese class I Confirmed Active Obesity associated disorder 4 Confirmed Active PTSD - Post-traumatic stress disorder 5 Confirmed 2008 Active Seizure disorder Confirmed Active UI (urinary incontinence) Confirmed Active 1CT head and neck May 2023 2Hemoglobin A1c 5.7 3thighs and legs 4BMI = 36, s/p bypass age 21 [facility] Social History Social History Type Response Smoking Status Never (less than 100 in lifetime) entered on: 04/02/23 Sex Sex Representation Female (finding) Patient Care team information Care Team Personnel Name: Ana Weber RN Position: [facility] RN Member Role: Primary Care Nurse Name: Bruna Martinez RN Position: [facility] RN Member Role: Primary Care Nurse Name: Vitor Martinez RN Position: S RN Member Role: Primary Care Nurse Name: Makenzie Cruz RN Position: S RN Member Role: Primary Care Nurse Name: Rojelio Bui RN Position: S RN Member Role: Primary Care Nurse Name: Debora Duffy RN Position: S RN Member Role: Primary Care Nurse Name: Nasreen Amezcua RN Position: S RN Member Role: Primary Care Nurse Name: Nica Chahal MD Position: Reference Physician Member Role: PCP Address: [address] [place] [address] [place], [place] [address] Telecom: Name: Dipti Pena RN Position: [facility] RN Member Role: Primary Care Nurse Name: Anusha Byrd RN Position: [facility] RN Member Role: Primary Care Nurse Name: Haley Hickman RN Position: S RN Member Role: Primary Care Nurse Name: Glenn López Position: [facility] RN Member Role: Primary Care Nurse Care Team Related Persons Name: NAGEL GREWAL Insurance Providers Guarantor name: CONSTANCE NICHOLS [email or web address] [facility] Information #: 1 Payer: [employer] Member Number: NA Policy Number: NA Group Number: NA
--- OUTSIDE RECORDS SUMMARY | 2024-06-10 09:42 | XMS_ITS | Clinical Summary ---
Demographics Address [address] [place] [address] Home Phone Preferred Language en Marital Status Unknown Gnosticist Affiliation Unknown Race Unknown Ethnic Group Not or Lati no Author Organization [facility] Address [address] [place] [address] Phone Care Team Providers Care Physical Education Teacher Name Role Phone Pranay Anguiano MD Primary Care Provider Allergies Active Allergy Reactions Criticality Noted Date Comments Sulindac Nausea And Vomiting 06/17/2013 Tramadol 01/15/2022 Medications ferrous gluconate (FERGON) 324 (38 Fe) MG tablet Take 324 mg by mouth 04/29/2021 Active gabapentin (NEURONTIN) 300 MG capsule Take 300 mg by mouth 07/30/2020 Active meloxicam (MOBIC) 15 MG tablet TAKE 1 TABLET BY MOUTH EVERY DAY 07/16/2021 Active triamcinolone acetonide (KENALOG-40) 40 MG/ML injection Inject 40 mg into the joint 07/16/2021 Active Active Problems Problem Noted Date Diagnosed Date Opioid abuse 04/15/2021 Iron deficiency anemia 03/22/2012 Immunizations Immunization Administration Dates Next Due Hepatitis B 09/17/2017,03/09/2017,01/22/2017 Pfizer SARS-COV-2 06/27/2020,06/06/2020 Td, Unspecified 08/16/2007 Tdap 11/08/2009 Family History Medical History Relation Comments Cancer Father Throat Cancer Hypertension Father Cancer Mother Lung cancer Hypertension Mother Hypertension Sister Relation Status Comments Father Mother Sister Social History Tobacco Use Types Packs/Day Years Used Date Smoking Tobacco: Never Smokeless Tobacco: Never Tobacco Cessation:Counseling Given: Not Answered Alcohol Use Standard Drinks/Week Comments Yes 0 (1 standard drink = 0.6 oz pur e alcohol) Comments Unknown Sex and Gender Information Value Date Recorded Sex Assigned at Not on file Legal Sex Female 2:57 PM EDT Gender Identity Not on file Sexual Orientation Not on file Plan of Treatment Health Maintenance Due Date Last Done Comments Breast Cancer Screening 1962 Pneumococcal Vaccine: 50+ Years (1 of 2 - PCV) 1981 Colorectal Cancer Screening: Annual FOBT 11/18/2011 Colorectal Cancer Screening: Colonoscopy 11/18/2011 Colorectal Cancer Screening: Sigmoidoscopy 11/18/2011 Influenza Vaccine (Season Ended) 2024 Hepatitis B Vaccine Aged Out 09/17/2017, 03/09/2017, 01/22/2017 No longer eligible based on patient's age to complete this topic Insurance Care Teams Physical Education Teacher Relationship Specialty Start Date End Date Pranay Anguiano MD [address] [place] [id number] PCP - General Internal Medicine 09/03/21
--- OUTSIDE RECORDS SUMMARY | 2024-06-10 09:43 | XMS_ITS | Clinical Summary ---
Author Organization Patient Business Ser [facility] Address [address] [place] [address] Care Team Providers Care Radio Intelligence Operator Name Role Phone Nica Cage MD Primary Care Prov ider Allergies Active Allergy Reactions Criticality Noted Date Comments Sulindac Nausea And Vomiting 06/17/2013 Tramadol Nausea And Vomiting Low Medications levETIRAcetam (KEPPRA) 500 mg tablet Take 1 tablet (500 mg total) by mouth 2 (two) times a day. 06/08/2023 Active D-MANNOSE ORAL Take by mouth. D-Mannose 350 MG Cap Take by mouth. Per urology Active estradioL (ESTRACE) 0.01 % (0.1 mg/gram) vaginal cream USE DIRECTED 1 GRAM 3X PER WEEK 09/08/2022 Active gabapentin (NEURONTIN) 600 mg tablet Take 1 tablet (600 mg total) by mouth 4 (four) times a day. 10/06/2022 Active SUMAtriptan (IMITREX) 100 mg tablet 10/15/2022 Active Active Problems Problem Noted Date Diagnosed Date Chronic low back pain 12/11/2023 Obesity (BMI 30.0-34.9) 12/11/2023 Pure hypercholesterolemia 04/06/2023 Seizure disorder (CMS/HCC V24, CMS/HCC V28) 10/24 Quadriceps tendon rupture, right, sequela 2020 Primary osteoarthritis of left knee 08/07/2020 Cervical radicular pain 07/19/2020 Shoulder pain, left 07/19/2020 Vasovagal syncope 05/15/2020 Lumbar radicular pain 12/25/2016 Iron deficiency anemia 03/22/2012 Depression 09/13/2009 Encounters Date Type Department Care Team Description 05/24/2024 10:30 AM EDT Office Visit Adult [address] [address] Nica Rasheed MD Hospital discharge follow-up (Primary Dx); Cholecystitis; S/P laparoscopic cholecystectomy; Diaphoresis 05/18/2024 Telephone [facility] Cardiology [facility] [address] [facility] [address] [place] [address] Nica Rasheed MD Referral (Attempted to reach, no response. TR) 05/10/[address] [phone] Nica Rasheed MD Hospital Follow-up 04/13/[address] [phone] Nica Rasheed MD PT 1 04/13/[address] [phone] Nica Rasheed MD pt 1 03/28/[address] [phone] Nica Rasheed MD Weakness - Generalized from Last 3 Months Immunizations Name Administration Dates Next Due Hepatitis B (Qdtkmsf-N-Gmnga , Recombivax HB-Adult) 19yo and older 09/17/2017,03/09/2017,01/22/2017 Influenza Quadravalent, MDCK , 0.5ml, preservative free (Flucelvax) 6mo and older 03/18/2022 Influenza trivalent, 0.5mL, preservative free (Fluarix; FluLaval; Fluzone) ages 6mo and older (Afluria) 3 years and older 01/11/2015,11/08/2009 MMR, measles mumps and rubel la Live (Priorix; M-M-R II) 12mo and older 10/02/2015 Td Tetanus diptheria (Tdvax) 7yo and older 08/15 Tdap Tetanus diptheria acell ular pertussis (Boostrix; Adacel) 7yo and older 11/08/2009 Surgical History Surgery Date Site/Laterality Comments TUBAL LIGATION PROCEDURE: HISTORICAL TUBAL LIGATION ESOPHAGOGASTRODUODENOSCOPY 03/22/12 PROCEDURE: AK EGD TRANSORAL BIOPSY SINGLE/MULTIPLE; COMMENT: s/p gastric bypass, nl , bx of eff. and aff. loops ->normal small intestine, normal gastric mucosa COLONOSCOPY 03/22/12 PROCEDURE: AK COLONOSCOPY FLX DX W/COLLJ SPEC WHEN PFRMD; COMMENT: normal, rpt at age 61 GASTRIC BYPASS 1981 PROCEDURE: GASTRIC BYPASS FOR OBESIT; COMMENT: [facility] KNEE SURGERY 2014 Right PROCEDURE: HISTORICAL KNEE SURGERY; COMMENT: arthroscopic TOTAL KNEE ARTHROPLASTY 10/2019 Right PROCEDURE: AK ARTHRP KNE CONDYLE&PLATU MEDIAL&LAT COMPARTMENTS; COMMENT: Dr. Preston KNEE SURGERY 11/2019 Right PROCEDURE: HISTORICAL KNEE SURGERY; COMMENT: Dr. Preston, had fall after knee surgery and needed? quad tendon repair Medical History Medical History Date Comments Depression DX:Depression Chronic low back pain DX:Chronic low back pain Obesity (BMI 30.0-34.9) DX:Obesi ty (BMI 30.0-34.9) Urinary tract infection DX:Urina ry tract infection Pure hypercholesterolemia 04/06/2023 DX:Pur e hypercholesterolemia Family History Medical History Relation Name Comments Diabetes Aunt Pat No Known Problems Brother Hypertension Father Throat cancer Father No Known Problems Maternal Grandfather No Known Problems Maternal Grandmother Glaucoma Mother Hypertension Mother Lung cancer Mother Thyroid disease Mother No Known Problems Other No Known Problems Paternal Grandfather No Known Problems Paternal Grandmother Hypertension Sister Heart attack Uncle 2, Pat Blindness Neg Hx Cataracts Neg Hx Macular degeneration Neg Hx Strabismus Neg Hx Relation Name Status Comments Aunt Brother Father dementia,throat cancer Maternal Grandfather Maternal Grandmother Mother (Age 85) Other Paternal Grandfather Paternal Grandmother Sister Alive 2, Uncle Social History Tobacco Use Types Packs/Day Years Used Date Smoking Tobacco: Never Smokeless Tobacco: Never Tobacco Cessation:Counseling Given: Not Answered Alcohol Use Standard Drinks/Week Comments Yes 0 (1 standard drink = 0.6 oz pur e alcohol) Housing Instability Answer Date Recorde d Are you worried that in the next 2 months you may not have stable housing? No 05/24/2024 Food Access & Nutrition Answer Date Rec orded Do you have access to a vari ety of food including fruits and vegetables? Yes 05/24/2024 Health Literacy Answer Date Recorded How often do you need to hav e someone help you when you read instructions, pamphlets, or other written material from your doctor or pharmacy? Never 05/24/2024 Caregiver: How often do you need to have someone help you when you read instructions, pamphlets, or other written material from your doctor or pharmacy? Not on file 05/24/2024 Financial Risk Answer Date Recorded How hard is it for you to pa y for the very basics like food, housing, medical care, and air conditioning / heating? Not very hard 05/24/2024 Transportation Answer Date Recorded Has the lack of transportati on kept you from meetings, work, or from getting things needed for daily living? Not on file 05/24/2024 Has the lack of transportati on kept you from medical appointments or from getting medications? No 05/24/2024 Social Isolation Answer Date Recorded How often do you feel lonely or isolated from th ose around you? Never 05/24/2024 Food Risk Answer Date Recorded Within the past 12 months we worried whether our food would run out before we got money to buy more. Never true 05/24/2024 Within the past 12 months th e food we bought just didn't last and we didn't have money to get more. Never true 05/24/2024 Dependent Care Answer Date Recorded Do you need help finding or paying for care for your loved ones. For example, children's ministries director or elderly care for an older adult? No 05/24/2024 Education Answer Date Recorded Do you think completing more education or training, like finishing a GED, going to college, or learning a trade, would be helpful for you? No 05/24/2024 Employment and Income Answer Date Recor ded During the last four weeks, have you been actively looking for work? No 05/24/2024 Living Situation Answer Date Recorded What is your living situation? 0 05/24/2024 Comments No Sex and Gender Information Value Date Recorded Sex Assigned at Not on file Legal Sex Female 10:27 AM EDT Gender Identity Not on file Sexual Orientation Not on file Obstetrics History Last Filed Vital Signs Vital Sign Reading Time Taken Comments Blood Pressure 134/84 05/24/2024 10:25 AM EDT Pulse 92 05/24/2024 10:25 AM EDT Temperature 36.4 ??C (97.6 ??F) 05/24/2024 10:25 AM E DT Respiratory Rate 15 05/24/2024 10:25 AM EDT Oxygen Saturation - - Inhaled Oxygen Concentration - - Weight 85.5 kg (188 lb 9.6 oz) 05/24/2024 10:25 AM EDT Height 167.6 cm (5' 6 ) 05/24/2024 10:25 AM EDT Body Mass Index 30.44 05/24/2024 10:25 AM EDT Plan of Treatment Upcoming Encounters Date Type Department Care Team (Late st Contact Info) Description 07/07/2024 10:00 AM EDT Consult Adult Medicine [facility] - [address] [phone] Nica Cage MD [address] [place] [address] 12/28/2024 8:00 AM EST Appointment Radiology Department - [address] [phone] Health Maintenance Due Date Last Done Comments Hepatitis A Vaccines (1 of 2 - Risk 2-dose series) 1981 Pneumococcal Vaccine: 50+ Years (1 of 1 - PCV) 2012 Zoster Vaccines (1 of 2) 2012 Cervical Cancer Screening: Pap Smear 05/11/2015 05/10/2012 Colorectal Cancer Screening: Colonoscopy 03/22/2022 03/22/2012 COVID-19 Vaccine ( season) 2023 03/13/2021, 06/27/2020, 06/06/2020 Influenza Vaccine (Season Ended) 2024 03/18/2022, 01/11/2015, 11/08/2009 Depression Screening 05/24/2025 05/24/2024, 06/16/19 24 Social Influencers of Health Screening 05/24/2025 05/24/2024 Breast Cancer Screening 12/10/2025 12/11/2023, 12/10 Cholesterol Screening (Lipid Panel) 04/03/2028 04/03/2023 DTaP,Tdap,and Td Vaccines (5 - Td or Tdap) 12/15/2033 12/16/2023, 05/11/2022, 11/08/2009, Additional history exists RSV Immunization Adult Patients (1 - 1-dose 75+ series) 2037 Hepatitis C Screening Completed 01/11/2015 MMR Vaccines Aged Out 10/02/2015 No longer eligi ble based on patient's age to complete this topic Hepatitis B Vaccines Completed 09/17/2017, 03/09/2017, 01/22/2017 HIV Screening Completed 12/25/2023 HIB Vaccines Aged Out No longer eligi ble based on patient's age to complete this topic HPV Vaccines Aged Out No longer eligi ble based on patient's age to complete this topic IPV Vaccines Aged Out No longer eligi ble based on patient's age to complete this topic Meningococcal ACWY Vaccine Aged Out N o longer eligible based on patient's age to complete this topic Meningococcal B Vaccine Aged Out No l onger eligible based on patient's age to complete this topic Pneumococcal Vaccine: Pediatrics (0 to 5 Years) and At-Risk Patients (6 to 64 Years) Aged Out No longer eligible based on patient's age to complete this topic RSV Immunization Patients Under 20 months Aged Out No longer eligible based on patient's age to complete this topic Varicella Vaccines Aged Out No longer eligible based on patient's age to complete this topic Procedures Procedure Name Priority Date/Time Associated Diagnosis Comments THYROID STIMULATING HORMONE WITH REFLEX TO FREE T4 AND FREE T3 Routine 05/24/2024 10:57 AM EDT Diaphoresis SCREENING MAMMOGRAPHY BI 2-VIEW BREAST INC CAD Routine 12/11/2023 7:46 AM EDT Encounter for screening mammogram for malignant neoplasm of breast HM DEPRESSION SCREENING Routine 06/16/2023 LIPID PANEL Routine 04/03/2023 HEPATITIS C SCREENING Routine 01/11/2015 PAP SMEAR Routine 05/10/2012 COLONOSCOPY Routine 03/22/2012 from Last 3 Months or Most Recently Relevant to Health Maintenance Results * Thyroid stimulating hormone with reflex to free t4 and free t3 (05/24/2024 10:57 AM EDT) TSH 0.80 0.40 - 4.00 mcIU/mL LAB CHEMISTRY METHOD 05/24/2024 3:41 PM EDT [facility] Blood Venous blood specimen / Unknown Venipuncture / Unknown 05/24/2024 10:57 AM EDT 05/24/2024 10:57 AM EDT us Nica Cage MD LAB BLOOD ORDERABL ES Final Result [facility] [address] [place] [address], * SCREENING MAMMOGRAPHY BI 2-VIEW BREAST INC CAD (12/11/2023 7:46 AM EDT) Anatomical Region Laterality Modality Radiographic Thelma ging 10/21/2023 1:45 PM EDT Narrative 12/11/2023 11:13 AM EDT This is a summary report. The complete report is available in the patient's medical record. If you cannot access the medical record, please contact the sending organization for a detailed fax or copy. Full field digital screening tomosynthesis mammography, reviewed with CAD and compared to previous. The breasts are composed of fatty and fibroglandular tissue. ??No suspicious mass, architectural distortion or suspicious calcifications are identified. IMPRESSION: : No mammographic evidence of malignancy. BIRADS 1-Negative; N. Breast density: The breasts have scattered areas of fibroglandular density. 5 year breast cancer risk assessment 1.5 % Lifetime breast cancer risk assessment 6.7 % Breast cancer risk category Low (<15%) Location: [facility], [address] [place] [address], [address], [phone] Procedure Note Trent Turner MD - 12/22/2023 This is a summary report. The complete report is available in thepatient's medical record. If you cannot access the medical record, pleasecontact the sending organization for a detailed fax or copy. Full field digital screening tomosynthesis mammography, reviewed with CADreilly compared to previous. The breasts are composed of fatty andfibroglandular tissue. No suspicious mass, architectural distortion orsuspicious calcifications are identified. IMPRESSION: : No mammographic evidence of malignancy. BIRADS 1-Negative; N. Breast density: The breasts have scattered areas of fibroglandulardensity. 5 year breast cancer risk assessment 1.5 % Lifetime breast cancer risk assessment 6.7 % Breast cancer risk category Low (<15%) Location: [facility], [address] [place] [address], [address], [phone] Result [facility] Cyndee JOHNSON IMG XR PROCEDURES Final Result * Depression Screening (06/16/2023) [facility] Depression Screening Abstracted Result [facility] Historical Provider HEALTH MAINTENANCE Final Result * (ABNORMAL) Lipid panel (04/03/2023) [facility] LDL/HDL Ratio 3 0 - 4 Triglycerides 51 0 - 150 mg/dL Cholesterol 239(A) 0 - 200 mg/dL HDL 79 >=40 mg/dL LDL Cholesterol 150(A) 0 - 100 mg/dL Blood Venous blood specimen / Unknown Result [facility] Historical Provider LAB BLOOD ORDERABLES Lupe l Result * Hepatitis C Screening (01/11/2015) [facility] Hepatitis C Screening Abstracted Historical Provider HEALTH MAINTENANCE Final Result * Pap Smear (05/10/2012) Pathologist [facility] Pap smear No Interpretation , Abstracted Historical Provider HEALTH MAINTENANCE Final Result * Colonoscopy (03/22/2012) Pathologist [facility] Colonoscopy No Interpretation , Abstracted Anatomical Region Laterality Modality Other Historical Provider HEALTH MAINTENANCE Final Result from Last 3 Months or Most Recently Relevant to Health Maintenance Insurance [facility] Care Teams Radio Intelligence Operator Relationship Specialty Start Date End Date Nica Cage MD [address] [place] [phone] PCP - General Internal Medicine 01/22/24
== END 2024-06-10 10:18 | disposition home or self-care (01) ==
LOC: HO.HSMS 09:14
PROVIDERS: PCP Internal Medicine; Visit Provider Physician Assistant Medical
DX: R25.3 Fasciculation (principal); G47.9 Sleep disorder, unspecified; G43.919 Migraine, unspecified, intractable, without status migrainosus; G40.909 Epilepsy, unspecified, not intractable, without status epilepticus; R53.83 Other fatigue; F41.9 Anxiety disorder, unspecified; G56.03 Carpal tunnel syndrome, bilateral upper limbs; G47.19 Other hypersomnia; R45.4 Irritability and anger
CPT/HCPCS: 99214; G2211

== ENCOUNTER → 2024-06-10 09:13 | Outpatient (BNVA) | payer OTHER, SELFPAY | PROVIDERS: PCP Internal Medicine; Visit Provider Physician Assistant Medical | DX: R25.3 Fasciculation (principal); G47.9 Sleep disorder, unspecified; G43.919 Migraine, unspecified, intractable, without status migrainosus; G40.909 Epilepsy, unspecified, not intractable, without status epilepticus; R53.83 Other fatigue; F41.9 Anxiety disorder, unspecified; G56.03 Carpal tunnel syndrome, bilateral upper limbs; G47.19 Other hypersomnia; R45.4 Irritability and anger | CPT/HCPCS: 99212 ==

== ENCOUNTER → 2024-11-17 08:49 | Outpatient (REF) | payer OTHER, SELFPAY ==
--- OUTSIDE RECORDS SUMMARY | 2024-11-17 09:27 | XMS_ITS | Clinical Summary ---
Demographics Address [address] [place] [address] Home Phone Preferred Language en Marital Status Unknown Nondenominational Affiliation Unknown Race Unknown Ethnic Group Not or Lati no Author Organization [facility] Address [address] [place] [address] Phone Care Team Providers Care Flight Control Specialist Name Role Phone Pranay Anguiano MD Primary Care Provider [phone] Allergies Active Allergy Reactions Criticality Noted Date [...] Colorectal Cancer Screening: Sigmoidoscopy 11/18/2011 Influenza Vaccine (#1) 2024 Hepatitis B Vaccine Aged Out 09/17/2017, 03/09/2017, 01/22/2017 No longer eligible based on patient's age to complete this topic Insurance Care Teams Flight Control Specialist Relationship Specialty Start Date End Date Pranay Anguiano MD [address] [place] [phone] PCP - General Internal Medicine 09/03/21
--- OUTSIDE RECORDS SUMMARY | 2024-11-17 09:27 | XMS_ITS | Encounter Summary ---
Author Organization [facility] Address [address] [place] [address] Care Team Providers Care Employment Manager Name Role Phone Nica Cage MD Primary Care Prov ider Encounter Details Date Type Department Care Team (Late Contact Info) Description 02/11/2024 Lab Requisition [facility] - Main Lab [address] [place] [phone] Jc Nuñez, A[address] [place] [phone] Encounter for screening for malignant neoplasm of [...] Department Care Team (Late Contact Info) Description 12/28/2024 8:00 AM EST Appointment Radiology Department - [address] [phone] documented as of this encounter Visit Diagnoses Diagnosis Encounter for screening for malignant neoplasm of colon documented in this encounter Care Teams Employment Manager Relationship Specialty Start Date End Date Nica Cage MD [address] [place] [address] PCP - General Internal Medicine 01/22/24 documented as of this encounter
--- OUTSIDE RECORDS SUMMARY | 2024-11-17 09:27 | XMS_ITS | Clinical Summary ---
Author Organization [facility] Address [address] [place] [address] Care Team Providers Care Needle Leader Name Role Phone Nica Cage MD Primary Care Prov ider Allergies Active Allergy Reactions Criticality Noted Date Comments Sulindac Nausea And Vomiting 06/17/2013 Tramadol Nausea And Vomiting Low Medications levETIRAcetam (KEPPRA) 500 mg tablet Take 1 tablet (500 mg total) by mouth 2 (two) times a day. 4 Active estradioL (ESTRACE) 0.01 % (0.1 mg/gram) vaginal cream USE DIRECTED 1 GRAM 3X PER WEEK 3 Active gabapentin (NEURONTIN) 600 mg tablet Take 1 tablet (600 mg total) by mouth 4 (four) times a day. 3 Active meclizine (ANTIVERT) 25 mg tablet Take 1 tablet (25 mg total) by mouth 2 (two) times a day if needed for dizziness for up to 40 doses. 40 tablet 5 Active Additional Information Patient not taking.Reported on 11/10/2024 ketorolac (ACULAR) 0.5 % ophthalmic solution INSTILL 1 DROP IN AFFECTED EYE 3 TIMES A DAY START 2 DAYS PRIOR TO SURGERY. CONTINUE DIRECTED. 5 Active loratadine (CLARITIN) 10 mg tablet Take 1 tablet (10 mg total) by mouth 1 (one) time each day if needed for allergies. Active Active Problems Problem Noted Date Diagnosed Date Other fatigue 11/10/2024 Weight loss 11/10/2024 Chronic low back pain 12/11/2023 Obesity (BMI 30.0-34.9) 12/11/2023 Pure hypercholesterolemia 04/06/2023 Seizure disorder (CMS/[facility] V24, CMS/[facility] V28) 10/24 Assessment & Plan (07/26/2024 11:29 AM EDT): Controlled on Keppra. Follows with neurology. Quadriceps tendon rupture, right, sequela 2020 Primary osteoarthritis of left knee 08/07/2020 Cervical radicular pain 07/19/2020 Shoulder pain, left 07/19/2020 Vasovagal syncope 05/15/2020 Lumbar radicular pain 12/25/2016 Depression 09/13/2009 Resolved Problems Problem Noted Date Diagnosed Date Resolved Date Iron deficiency anemia 03/22/201211/10 Encounters Date Type Department Care Team Description 11/10/2024 2:20 PM EDT Office Visit Gastroenterology - [facility] [address] [place] [address] Dany Montelongo MD Other fatigue (Primary Dx); Weight loss; History of gastric bypass; Colon cancer screening 10/03/2024 Telephone Adult Medicine [address] [phone] Nica Rasheed MD 09/30/2024 10:00 AM EDT Consult Adult Medicine [address] [phone] Nica Rasheed MD Preop cardiovascular exam (Primary Dx); Cataract of both eyes, unspecified cataract type 08/17/2024 Telephone Adult Medicine [address] [phone] Nica Rasheed MD from Last 3 Months Immunizations Name Administration Dates Next Due Hepatitis B (Mwtvmxy-Y-Ypjsy , Recombivax HB-Adult) 19yo and older 09/17/2017,03/09/2017,01/22/2017 [...] ular pertussis (Boostrix; Adacel) 7yo and older 12/16/2023,05/11/2022,11/08/2009 Surgical History Surgery Date Site/Laterality Comments TUBAL LIGATION PROCEDURE: HISTORICAL TUBAL LIGATION ESOPHAGOGASTRODUODENOSCOPY 03/22/12 PROCEDURE: ID EGD TRANSORAL BIOPSY SINGLE/MULTIPLE; COMMENT: s/p gastric bypass, nl , bx of eff. and aff. loops ->normal small intestine, normal gastric mucosa COLONOSCOPY 03/22/12 PROCEDURE: ID COLONOSCOPY FLX DX W/COLLJ SPEC WHEN PFRMD; COMMENT: normal, rpt at age 61 GASTRIC BYPASS 1981 PROCEDURE: GASTRIC BYPASS FOR OBESIT; COMMENT: [facility] KNEE SURGERY 2014 Right PROCEDURE: HISTORICAL KNEE SURGERY; COMMENT: arthroscopic TOTAL KNEE ARTHROPLASTY 10/2019 Right PROCEDURE: ID ARTHRP KNE CONDYLE&PLATU MEDIAL&LAT COMPARTMENTS; COMMENT: Dr. [...] care for your loved ones. For example, child care attendant school or elderly care for an older adult? [...] Sign Reading Time Taken Comments Blood Pressure 122/80 11/10/2024 2:21 PM EDT Pulse 78 11/10/2024 2:21 PM EDT Temperature 36.2 C (97.2 F) 09/30/2024 9:51 AM EDT Respiratory Rate 16 09/30/2024 9:51 AM EDT Oxygen Saturation 98% 09/30/2024 9:51 AM EDT Inhaled Oxygen Concentration - - Weight 77.6 kg (171 lb) 11/10/2024 2:21 PM EDT Height 167.6 cm (5' 6 ) 11/10/2024 2:21 PM EDT Body Mass Index 27.6 11/10/2024 2:21 PM EDT Plan of Treatment Upcoming Encounters Date Type Department Care Team (Late st Contact Info) Description 12/28/2024 8:00 AM EST Appointment Radiology Department [address] [phone] Health Maintenance Due Date Last Done Comments Hepatitis A Vaccines (1 of 2 - Risk 2-dose series) 1981 Pneumococcal Vaccine: 50+ Years (1 of 1 - PCV) 2012 Zoster Vaccines (1 of 2) 2012 Cervical Cancer Screening: Pap Smear 05/11/2015 05/10/2012 Colorectal Cancer Screening: Colonoscopy 03/22/2022 03/22/2012 COVID-19 Vaccine ( season) 2024 03/13/2021, 06/27/2020, 06/06/2020 Influenza Vaccine (#1) 2024 , 01/11/2015, 11/08/2009 Social Influencers of Health Screening 05/24/2025 05/24/2024 [...] 09/17/2017, 03/09/2017, 01/22/2017 HIV Screening Completed 12/25/2023 Depression Screening Completed 05/24/2024, 06/16/19 24 HIB Vaccines Aged Out No longer eligi [...] Procedure Name Priority Date/Time Associated Diagnosis Comments SCREENING MAMMOGRAPHY BI 2-VIEW BREAST INC CAD Routine 12/11/2023 7:46 AM EDT Encounter for screening mammogram for malignant neoplasm of breast DEPRESSION SCREENING Routine 06/16/2023 LIPID PANEL Routine 04/03/2023 HEPATITIS C SCREENING Routine 01/11/2015 HM PAP SMEAR Routine 05/10/2012 HM COLONOSCOPY Routine 03/22/2012 from Last 3 Months or Most Recently Relevant to Health Maintenance Results * SCREENING MAMMOGRAPHY BI 2-VIEW BREAST INC [...] are composed of fatty and fibroglandular tissue. No suspicious mass, architectural distortion or suspicious calcifications are identified. IMPRESSION: : No mammographic evidence of malignancy. BIRADS 1-Negative; N. Breast density: The breasts have scattered areas of fibroglandular density. 5 year breast cancer risk assessment 1.5 % Lifetime breast cancer risk assessment 6.7 % Breast cancer risk category Low (<15%) Location: [facility], [address] [place] [address], [address], [phone] Procedure Note Trent Turner MD - 12/22/2023 This is a summary report. The complete report is available in thepatient's medical record. If you cannot access the medical record, pleasecontact the sending organization for a detailed fax or copy. Full field digital screening tomosynthesis mammography, reviewed with CADand compared to previous. The breasts are composed of fatty andfibroglandular tissue. No suspicious mass, architectural distortion orsuspicious calcifications are identified. IMPRESSION: : No mammographic evidence of malignancy. BIRADS 1-Negative; N. Breast density: The breasts have scattered areas of fibroglandulardensity. 5 year breast cancer risk assessment 1.5 % Lifetime breast cancer risk assessment 6.7 % Breast cancer risk category Low (<15%) Location: [facility], [address] [place] [address], [address], [phone] Result [facility] Cyndee JOHNSON IMG XR PROCEDURES Final Result * Depression Screening (06/16/2023) [facility] Depression Screening Abstracted Result [facility] Historical Provider HEALTH MAINTENANCE Final Result * (ABNORMAL) Lipid panel (04/03/2023) [facility] LDL/HDL Ratio 3 0 - 4 Triglycerides 51 0 - 150 mg/dL Cholesterol 239(A) 0 - 200 mg/dL HDL 79 >=40 mg/dL LDL Cholesterol 150(A) 0 - 100 mg/dL Blood Venous blood specimen / Unknown Result [facility] Historical Provider LAB BLOOD ORDERABLES Lupe l Result * Hepatitis C Screening (01/11/2015) [facility] Hepatitis C Screening Abstracted Result [facility] Historical Provider HEALTH MAINTENANCE Final Result * Pap Smear (05/10/2012) [facility] Pap smear No Interpretation , Abstracted Result [facility] Provider HEALTH MAINTENANCE Final Result * Colonoscopy (03/22/2012) [facility] Colonoscopy No Interpretation , Abstracted Anatomical Region Laterality Modality Other Historical Provider HEALTH MAINTENANCE Final Result from Last 3 Months or Most Recently Relevant to Health Maintenance Insurance [employer] Care Teams Needle Leader Relationship Specialty Start Date End Date Nica Cage MD [address] [place] [phone] PCP - General Internal Medicine 01/22/24
--- OUTSIDE RECORDS SUMMARY | 2024-11-17 09:27 | XMS_ITS | Clinical Summary ---
Author Organization [facility] Address [address] [place] [address] Care Team Providers Care Drier Tender Naphthalene Name Role Phone Unavailable Primary Care Provider [...] 94 04/15/2021 3:10 PM EST Temperature 36.9 C (98.5 F) 04/15/2021 3:10 PM EST Respiratory Rate 18 04/15/2021 3:10 PM EST [...] Tdap) 11/09/2019 11/08/2009, 08/16/2007 Influenza Vaccine (#1) 2024 5, 11/08/2009 RSV Adult > 60+ Yrs [...] Advance Directives For more information, please contact: [phone] Latest Code Status on File Code Status Date Activated Date Inactivated Comments Full Code 04/15/2021 4:39 AM 04/16/2021 1:37 AM This code status was ascertained in the following way: unable to obtain from patient and no next of kin available .
--- OUTSIDE RECORDS SUMMARY | 2024-11-17 09:27 | XMS_ITS ---
Author Name [facility] Organization Unknown Care Team Organization Name Specialty Phone Email Start Date End Da te [facility] Nica Chahal Primary Care 04/30/2022 10/12/2023 [facility] Minoo Parkinson Primary Care 12/31/2021 10/12/2023
== END ==
LOC: HO.SL 08:49
PROVIDERS: PCP Internal Medicine; Visit Provider Physician Assistant Medical
DX: G47.19 Other hypersomnia (principal)
CPT/HCPCS: 95806

== ENCOUNTER → 2024-11-17 09:02 | Outpatient (BNV) | payer OTHER, SELFPAY | PROVIDERS: PCP Internal Medicine; Visit Provider Psychiatry & Neurology Neurology | DX: R06.83 Snoring (principal) | CPT/HCPCS: 95806 ==

== ENCOUNTER 2024-12-14 13:22 | Outpatient (AMB) | payer OTHER, SELFPAY ==
--- NOTE | 2024-12-14 13:38 | MHC.OFFVIS ---
Vital Signs 12/14/24 13:42 Height 5 ft 6 in Weight 171 lb BMI 27.6 BP 124/80 Blood Pressure Location Lt brachial Position Sitting Pulse 121 H Pulse Source Pulse Oximeter Pulse Oximetry (%) 98 Oxygen Delivery Method Room Air Intake Visit Reasons: 3 mnts f/u Intake Note: Patient presents follow up sleep/migraine. HST in chart(AHI-1, ELKE 89%.). Allergies sulindac Allergy (Severe, Verified 12/14/24 13:43) Unknown HPI Comments Details: 64 year old female presents for a f/u of seizure like activity. Yulisa her sister and ENVIRONMENTAL HEALTH AND SAFETY INTERN is here with her today and helps with history. Nov 2024 HST c/w AHI of 0.2 and oxygen nadirs to 89%, inconclusive study, will evaluate with PSG in lab. Interval Seizure Activity 10/2024 Seizure 1.0 min to 1.5 min, she started to turn her face to the side and sister noticed the face started to shake with legs extended on the couch, and drooling then choking on saliva, eyes were shut, denies biting of tongue, denies urinary incontinence. She fell asleep immediately with loud snoring for 3-5 min, then woke up said she was exhausted and confused. November 2024 hit her face and scraped the r. side of the face due to seizure like activity per sister, however she did not witness it this time. She goes to sleep at 11pm and wakes up at 6am, with multiple arousals at night, and feeling disoriented in the morning, she never sleeps through the night. She has morning headaches lasting up to 2 hours. She continues to have fragmented sleep and daytime fatigue. Denies parasomnias, hallucinations, abnormal sleep behavior. She has pauses in speech, gets frustrated and feels like she is not herself. Her stm is poor, she is forgetful, has to write everything down, in order to complete tasks she has a sequential order. She no longer drives and has been forgetting to take her medication. She continues to have migraines 3x month, and can last all day starting at the front of the head, between her eyes and will migrate to the back of head. She has a pulsating pain with a severity of 5/10. She denies photophobia, phonophobia or auras. Always feels dizzy has instability of gait and loses her balance. Her mood is irritable today, her diet is poor, and she says I know I need to complete my sleep study . She is motivated and does word puzzles, suduko and wants to start volunteering but has no energy, she has lost 24 lbs since her last visit, due to lack of appetite on Keppra. She lives with her sister, and is independent with all her ADLs such as showering, dressing and feeding herself. She needs assistance with cleaning and cooking and errands. She has a family history of dementia father and mother. [facility] Medical History Anxiety Depression Benign familial tremor Seizure disorder Recurrent UTI Surgical History Hx of cholecystectomy H/O gastric bypass H/O: knee surgery Social History Household Members: Family Housing: Apartment Alcohol intake: never Patient Tobacco Use Status: Never used Tobacco Physical Exam Vital Signs: Last Vital Signs Pulse 121 H 12/14/24 13:42 BP 124/80 12/14/24 13:42 Pulse Ox 98 12/14/24 13:42 Oxygen Delivery Method Room Air 12/14/24 13:42 BMI result Body Mass Index 27.6 Const General: cooperative, comfortable and no acute distress Nutritional Appearance: average body habitus and obese HEENT Face and sinus: Yes face symmetric Teeth and gingiva: other ([place] score of 4) Eyes Pupils: Equal, round and reactive pupils present Neck Neck: Yes full ROM Resp Effort & Inspection: normal respiratory effort and able to speak in complete sentences Neuro Cranial nerves: Yes CN's II-XII intact bilaterally, Yes Facial sensation intact/muscles of mastication intact, Yes Equal, round and reactive pupils present, Yes Normal accommodation reflex present, Yes Bilaterally intact EOM present, Yes Normal facial strength present, Yes Midline tongue present, Yes Ability to bilaterally rotate head present and Yes Ability to bilaterally elevate shoulders present Gait exam (Neuro): Antalgic gait present and Staggering gait present Motor exam (neuro): 5/5 motor strength present throughout and Normal motor muscle tone present throughout Psych Appearance: well kempt Speech and movement: Slowed movement present (Neuro) Insight: Fair insight present (Psych) Results Reviewed Results Reviewed: Nov 2024 HST c/w AHI of 0.2 and oxygen nadirs to 89%, inconclusive study, will evaluate with PSG in lab. December 2023 EEG, unremarkable. MR/MR head/brain wo con IMPRESSION: No acute intracranial process. [id number] generalized parenchymal volume loss with concordant ex vacuo dilatation of the ventricles. No hippocampal pathology or epileptogenic focus identified. Assessment & Plan Assessment & Plan (1) Excessive daytime sleepiness: Code(s): G47.19 - Other hypersomnia Category: Medical (2) Seizure: Code(s): R56.9 - Unspecified convulsions Category: Medical (3) Seizure disorder: Comment: poorly controlled Code(s): G40.909 - Epilepsy, unspecified, not intractable, without status epilepticus Category: Medical (4) Balance problem due to vestibular dysfunction: Code(s): H83.2X9 - Labyrinthine dysfunction, unspecified ear Category: Medical Qualifiers: Laterality: unspecified laterality Qualified Code(s): H83.2X9 - Labyrinthine dysfunction, unspecified ear (5) Anemia: Code(s): D64.9 - Anemia, unspecified Category: Medical Qualifiers: Anemia type: iron deficiency Iron deficiency anemia type: unspecified iron deficiency Qualified Code(s): D50.9 - Iron deficiency anemia, unspecified Plan PSG chronic sleep difficulties, will evaluate with in lab study, HST was inconclusive and reviewed with pt. EEG - Evaluate Seizure like activity Increase Keppra from 500mg po BID to 750mg po BID. Have ENVIRONMENTAL HEALTH AND SAFETY INTERN administer all medications on time. Pt ed re:driving restriction, she is no longer driving. Continue to wear Health alert bracelet. PT Gait and Balance strengthening Lack of appetite, start intake of Power Core or Ensure, continue with low intensity exercises as tolerable or walking for 20 min Letter for Jury duty excuse letter Badge [id number]- seizure disorder Chronic Fatigue Anemia labs to r/o defiicencies APO E4 genetic testing cognitive decline F/u in 3 months Orders: Orders RT PSG in-lab sleep study Today G47.19 - Other hypersomnia Comprehensive Met. Panel Today D64.9 - Anemia, unspecified, G47.19 - Other hypersomnia Vitamin B12 and Folate Today D64.9 - Anemia, unspecified Other Ref Test - Misc Today F02.80 - Dementia in other diseases classified elsewhere, unspecified severity, without behavioral disturbance, psychotic disturbance, mood disturbance, and anxiety, G30.9 - Alzheimer's disease, unspecified EEG Routine Today R56.9 - Unspecified convulsions PT Evaluation and Treatment Today H83.2X9 - Labyrinthine dysfunction, unspecified ear Complete Blood Count no Diff Today D64.9 - Anemia, unspecified Ferritin Today D64.9 - Anemia, unspecified Homocysteine Today D64.9 - Anemia, unspecified, G47.9 - Sleep disorder, unspecified, R53.83 - Other fatigue Methylmalonic Acid Today D64.9 - Anemia, unspecified, G47.9 - Sleep disorder, unspecified, R53.83 - Other fatigue IRON PROFILE Today D64.9 - Anemia, unspecified, G47.9 - Sleep disorder, unspecified, R53.83 - Other fatigue Vitamin D 25-OH Total Today D64.9 - Anemia, unspecified Vitamin B6 Today D64.9 - Anemia, unspecified TSH reflex Free T4 Today D64.9 - Anemia, unspecified Medications: Changed From levetiracetam 500 mg PO BID daily. 500 mg PO BID 60 tabs 3RF G40.909 - Epilepsy, unspecified, not intractable, without status epilepticus To levetiracetam 750 mg PO BID daily. 750 mg PO BID 180 tabs 3RF 3 months MDD 1500 G40.909 - Epilepsy, unspecified, not intractable, without status epilepticus Patient Instructions: Sleep Hygiene provided: set a scheduled bedtime and wake time to help regulate the circadian rhythm and balance the release of pituitary hormones. Sleep in a dark room, temperatures below 68 degrees, and no devices n bed. Limit caffeinated products 6 hours prior to bed, and limit fluids 2-4 hours prior to bed. Gentle night yoga, diffusing essential oils, and playing soft music can be relaxing. Please complete the following fasting labs to rule out deficiencies. CBC/CMP/ B12/ Vit D/ TSH/ Homocysteine and MMA/ Ferritin. Coding Level of Care Code Est Pt Level 4 (67637) Complex EM visit Add On G2211 Diagnoses Excessive daytime sleepiness G47.19 Seizure R56.9 Seizure disorder G40.909 Balance problem due to vestibular dysfunction, unspecified laterality H83.2X9 Laterality: unspecified laterality Iron deficiency anemia, unspecified iron deficiency anemia type D50.9 Anemia type: iron deficiency Iron deficiency anemia type: unspecified iron deficiency
[2024-12-14 13:42] VITALS: BP 124/80; PULSE 121; O2SAT 98; BMI 27.6
--- OUTSIDE RECORDS SUMMARY | 2024-12-14 18:55 | XMS_ITS | Clinical Summary ---
Author Organization [facility] Address [address] [place] [address] Care Team Providers Care Oil Field Pipeline Supervisor Name Role Phone Unavailable Primary Care Provider [...] Advance Directives For more information, please contact: [phone] Latest Code Status on File Code Status Date Activated Date Inactivated Comments Full Code 04/15/2021 4:39 AM 04/16/2021 1:37 AM This code status was ascertained in the following way: unable to obtain from patient and no next of kin available .
--- OUTSIDE RECORDS SUMMARY | 2024-12-14 18:55 | XMS_ITS | Encounter Summary ---
Author Organization [facility] Address [address] [place] [address] Care Team Providers Care Pamphlet Distributor Name Role Phone Nica Cage MD Primary Care Prov ider Encounter Details Date Type Department Care Team (Late Contact Info) Description 02/11/2024 Lab Requisition [facility] - Main Lab [address] [facility] [place] [phone] Jc Nuñez, [address] [place] [phone] Encounter for screening for malignant neoplasm of [...] 8:00 AM EST Appointment Radiology Department - [address] [phone] 01/31/2025 12:30 PM EST Appointment [facility] [address] [place] [phone] Dany Montelongo MD [address] [facility] [address] [place] [address] documented as of this encounter Visit Diagnoses Diagnosis Encounter for screening for malignant neoplasm of colon documented in this encounter Care Teams Pamphlet Distributor Relationship Specialty Start Date End Date Nica Cage MD [address] [place] [phone] PCP - General Internal Medicine 01/22/24 documented as of this encounter
--- OUTSIDE RECORDS SUMMARY | 2024-12-14 18:56 | XMS_ITS | Clinical Summary ---
Author Organization [facility] [place] Address [address] [place] [address] Care Team Providers Care Forwarder Operator Name Role Phone Nica Cage MD [...] 30.0-34.9) 12/11/2023 Pure hypercholesterolemia 04/06/2023 Seizure disorder ([facility] V24, [facility] V28) 10/24 Assessment & Plan (07/26/2024 11:29 [...] 2:20 PM EDT Office Visit Gastroenterology - [place] [address] [address] [place] [address] Dany Montelongo MD Other fatigue (Primary Dx); Weight loss; History of gastric bypass; Colon cancer screening 10/03/2024 Telephone Adult Medicine [address] [phone] Nica Rasheed MD 09/30/2024 10:00 AM EDT Consult Adult Medicine [address] [phone] Nica Rasheed MD Preop cardiovascular exam (Primary Dx); Cataract of both eyes, unspecified cataract type from Last 3 Months Immunizations Immunization Administration Dates Next Due Hepatitis B (Canviuv-S-Cazjv , Recombivax HB-Adult) 19yo and older 09/17/2017,03/09/2017,01/22/2017 [...] PROCEDURE: HISTORICAL TUBAL LIGATION ESOPHAGOGASTRODUODENOSCOPY 03/22/12 PROCEDURE: SD EGD TRANSORAL BIOPSY SINGLE/MULTIPLE; COMMENT: s/p gastric bypass, nl , bx of eff. and aff. loops ->normal small intestine, normal gastric mucosa COLONOSCOPY 03/22/12 PROCEDURE: SD COLONOSCOPY FLX DX W/COLLJ SPEC WHEN PFRMD; COMMENT: normal, rpt at age 61 GASTRIC BYPASS 1981 PROCEDURE: GASTRIC BYPASS FOR OBESIT; COMMENT: [facility] KNEE SURGERY 2014 Right PROCEDURE: HISTORICAL KNEE SURGERY; COMMENT: arthroscopic TOTAL KNEE ARTHROPLASTY 10/2019 Right PROCEDURE: SD ARTHRP KNE CONDYLE&PLATU MEDIAL&LAT COMPARTMENTS; COMMENT: Dr. [...] care for your loved ones. For example, child's nurse or elderly care for an older adult? [...] Date Recorded What is your living situation? Unrecognized valu e 05/24/2024 Comments No Sex and Gender Information [...] 12/28/2024 8:00 AM EST Appointment Radiology Department [address] [phone] 01/31/2025 12:30 PM EST Appointment [facility] Endoscopy [address] [place] [phone] Dany Montelongo MD [address] [address] Health Maintenance Due Date Last Done Comments [...] Completed 12/25/2023 Depression Screening Completed 05/24/2024, 06/16/19 HIB Vaccines Aged Out No longer eligi [...] on patient's age to complete this topic Goals Goal Patient Goal Type Associated Problems Recent Progress Patient-Stated? Author Autogenera nat Goal Care Plan Autogenerated Problem No Jayne Sanchez Procedures Procedure Name Priority Date/Time Associated Diagnosis Comments SCREENING MAMMOGRAPHY BI 2-VIEW BREAST INC CAD Routine 12/11/2023 7:46 AM EDT Encounter for screening mammogram for malignant neoplasm of breast HM DEPRESSION SCREENING Routine 06/16/2023 LIPID PANEL Routine 04/03/2023 HM HEPATITIS C SCREENING Routine 01/11/2015 HM PAP [...] Breast cancer risk category Low (<15%) Location: [facility], [address] [place] [address], [phone], [phone] Procedure Note Trent Turner MD - 12/22/2023 [...] Breast cancer risk category Low (<15%) Location: [facility], [address] [place] [address], [address], [phone] Result [facility] Cyndee JOHNSON IMG XR PROCEDURES Final Result * Depression Screening (06/16/2023) [facility] Depression Screening Abstracted Result [facility] Provider HEALTH MAINTENANCE Final Result * (ABNORMAL) Lipid panel (04/03/2023) [facility] LDL/HDL Ratio 3 0 - 4 Triglycerides 51 0 - 150 mg/dL Cholesterol 239(A) 0 - 200 mg/dL HDL 79 >=40 mg/dL LDL Cholesterol 150(A) 0 - 100 mg/dL Blood Venous blood specimen / Unknown Result [facility] Provider LAB BLOOD ORDERABLES Lupe l Result * Hepatitis C Screening (01/11/2015) [facility] Hepatitis C Screening Abstracted Result [facility] Provider HEALTH MAINTENANCE Final Result * Pap Smear (05/10/2012) [facility] Pap smear No Interpretation , Abstracted Result [facility] Provider HEALTH MAINTENANCE Final Result * Colonoscopy (03/22/2012) [facility] Colonoscopy No Interpretation , Abstracted Anatomical Region Laterality Modality Other Result [facility] Provider HEALTH MAINTENANCE Final Result from Last 3 Months or Most Recently Relevant to Health Maintenance Additional Health Concerns Active Problems Noted Date Diagnosed Date Autogenerated Problem 11/25/2024 Insurance [facility] [employer] Care Teams Forwarder Operator Relationship Specialty Start Date End Date Nica Cage MD [address] [place] [phone] PCP - General Internal Medicine 01/22/24
== END 2024-12-14 14:41 | disposition home or self-care (01) ==
LOC: HO.HSMC 13:22
PROVIDERS: PCP Internal Medicine; Visit Provider Physician Assistant Medical
DX: G47.19 Other hypersomnia (principal); R56.9 Unspecified convulsions; G40.909 Epilepsy, unspecified, not intractable, without status epilepticus; H83.2X9 Labyrinthine dysfunction, unspecified ear; D50.9 Iron deficiency anemia, unspecified
CPT/HCPCS: 99214

== ENCOUNTER → 2024-12-14 13:22 | Outpatient (BNVA) | payer OTHER, SELFPAY | PROVIDERS: PCP Internal Medicine; Visit Provider Physician Assistant Medical | DX: G47.19 Other hypersomnia (principal); G40.909 Epilepsy, unspecified, not intractable, without status epilepticus; H83.2X9 Labyrinthine dysfunction, unspecified ear; D50.9 Iron deficiency anemia, unspecified | CPT/HCPCS: 99212 ==

== ENCOUNTER 2024-12-16 11:17 | Outpatient (REF) | payer OTHER, SELFPAY ==
[2024-12-16 12:00] LABS: Hematocrit 38.5 % (37.0-47.0); Hemoglobin 12.1 g/dl (12.0-16.0); Mean Corpuscular HGB Conc 31.4 g/dl (31.0-35.0); Mean Corpuscular Hemoglobin 29.9 pg (27.0-33.0); Mean Corpuscular Volume 95.1 fL (80.0-98.0); NRBC Abs Auto 0.000 X10*3/uL (0.0-0.012); NRBC Pct Auto 0.0 /100WBC (0.0-0.2); Platelet Count 241 X10*3/uL (160-400); Red Blood Count 4.05 X10*6/uL (4.20-5.50); White Blood Count 5.5 X10*3/uL (4.8-10.8)
[2024-12-16 12:48] LABS: Alanine Aminotransferase 16 U/L (0-31); Albumin Level 4.0 g/dL (3.5-5.0); Alkaline Phosphatase 99 U/L (39-117); Anion Gap 12 (12-20); Aspartate Amino Transferase 27 U/L (5-31); Blood Urea Nitrogen 11 mg/dL (9-16); Calcium 9.1 mg/dL (8.4-10.2); Carbon Dioxide 26 mmol/L (22-29); Chloride 107 mmol/L (96-108); Estimated Glomerular Filt Rate > 60; Ferritin 55 ng/mL (10-250); Iron 93 mcg/dL (30-160); Percent Iron Saturation 34 % (15-50); Potassium 3.7 mmol/L (3.3-5.1); Sodium 141 mmol/L (135-145); Total Iron Binding Capacity 277 mcg/dL (228-428); Total Protein 7.0 g/dL (6.5-8.0); Unsaturated Iron Binding 184 ug/dL
[2024-12-16 13:02] LABS: Folate 3.6 ng/mL (> or = 4.0); Vitamin B12 451 pg/mL (200-900)
--- OUTSIDE RECORDS SUMMARY | 2024-12-16 13:41 | XMS_ITS | Clinical Summary ---
Demographics Address [address] [place] [address] Home Phone Preferred Language en Marital Status Unknown Jain Affiliation Unknown Race Unknown Ethnic Group Not or Lati no Author Organization [facility] Address [address] [place] [address] Phone Care Team Providers Care Equipment Cleaner Name Role Phone Pranay Anguiano MD Primary Care Provider [phone] Allergies Active Allergy Reactions Criticality Noted Date [...] Last Done Comments Breast Cancer Screening 1962 Colorectal Cancer Screening: Annual FOBT 11/18/2011 Colorectal Cancer Screening: Colonoscopy 11/18/2011 Colorectal Cancer Screening: Sigmoidoscopy 11/18/2011 Pneumococcal Vaccine: 50+ Years (1 of 1 - PCV) 2012 Influenza Vaccine (#1) 2024 Hepatitis B Vaccine Aged Out 09/17/2017, 03/09/2017, 01/22/2017 No longer eligible based on patient's age to complete this topic Insurance Care Teams Equipment Cleaner Relationship Specialty Start Date End Date Pranay Anguiano MD [address] [place] [phone] PCP - General Internal Medicine 09/03/21
--- OUTSIDE RECORDS SUMMARY | 2024-12-16 13:41 | XMS_ITS | Clinical Summary ---
Author Organization [facility] Address [address] [place] [address] Care Team Providers Care Cnc Operator Machinist Name Role Phone Unavailable Primary Care Provider [...] Advance Directives For more information, please contact: [phone] Latest Code Status on File Code Status Date Activated Date Inactivated Comments Full Code 04/15/2021 4:39 AM 04/16/2021 1:37 AM This code status was ascertained in the following way: unable to obtain from patient and no next of kin available .
--- OUTSIDE RECORDS SUMMARY | 2024-12-16 13:42 | XMS_ITS | Clinical Summary ---
Author Organization [facility] [place] Address [address] [place] [address] Care Team Providers Care Shrimp Peeling Machine Tender Name Role Phone Nica Cage MD Primary [...] 30.0-34.9) 12/11/2023 Pure hypercholesterolemia 04/06/2023 Seizure disorder ([facility] V24, [facility] V28) 10/24 Assessment & Plan (07/26/2024 11:29 [...] 2:20 PM EDT Office Visit Gastroenterology - [place] [address] [facility] [address] [place] [address] Dany Montelongo MD Other fatigue (Primary Dx); Weight loss; History of gastric bypass; Colon cancer screening 10/03/2024 Telephone Adult Medicine [address] [phone] Nica Rasheed MD 09/30/2024 10:00 AM EDT Consult Adult Medicine [address] [phone] Nica Rasheed MD Preop cardiovascular exam (Primary Dx); Cataract of both eyes, unspecified cataract type from Last 3 Months Immunizations Immunization Administration Dates Next Due Hepatitis B (Nfjiqvx-C-Xzoax , Recombivax HB-Adult) 19yo and older 09/17/2017,03/09/2017,01/22/2017 [...] PROCEDURE: HISTORICAL TUBAL LIGATION ESOPHAGOGASTRODUODENOSCOPY 03/22/12 PROCEDURE: [place] EGD TRANSORAL BIOPSY SINGLE/MULTIPLE; COMMENT: s/p gastric bypass, nl , bx of eff. and aff. loops ->normal small intestine, normal gastric mucosa COLONOSCOPY 03/22/12 PROCEDURE: [place] COLONOSCOPY FLX DX W/COLLJ SPEC WHEN PFRMD; COMMENT: normal, rpt at age 61 GASTRIC BYPASS 1981 PROCEDURE: GASTRIC BYPASS FOR OBESIT; COMMENT: [facility] KNEE SURGERY 2014 Right PROCEDURE: HISTORICAL KNEE SURGERY; COMMENT: arthroscopic TOTAL KNEE ARTHROPLASTY 10/2019 Right PROCEDURE: [place] ARTHRP KNE CONDYLE&PLATU MEDIAL&LAT COMPARTMENTS; COMMENT: Dr. [...] for your loved ones. For example, child nutrition director or elderly care for an older [...] 12/28/2024 8:00 AM EST Appointment Radiology Department [address] [phone] 01/31/2025 12:30 PM EST Appointment [facility] Endoscopy [address] [place] [phone] Dany Montelongo MD [address] [address] Health Maintenance Due Date Last Done Comments [...] Breast cancer risk category Low (<15%) Location: [facility], [address] [place] [address], [address], [phone] Procedure Note Trent Turner MD - 12/22/2023 [...] Breast cancer risk category Low (<15%) Location: [facility], [address] [place] [address], [address], [phone] Result [facility] Cyndee JOHNSON IMG XR PROCEDURES Final Result * Depression Screening (06/16/2023) [facility] Depression Screening Abstracted Result [facility] Provider HEALTH MAINTENANCE Final Result * (ABNORMAL) Lipid panel (04/03/2023) [facility] LDL/HDL Ratio 3 0 - 4 Triglycerides 51 0 - 150 mg/dL Cholesterol 239(A) 0 - 200 mg/dL HDL 79 >=40 mg/dL LDL Cholesterol 150(A) 0 - 100 mg/dL Blood Venous blood specimen / Unknown Result [facility] Provider LAB BLOOD ORDERABLES Lupe l Result * Hepatitis C Screening (01/11/2015) [facility] Hepatitis C Screening Abstracted Result [facility] Provider HEALTH MAINTENANCE Final Result * Pap Smear (05/10/2012) [facility] Pap smear No Interpretation , Abstracted Result [facility] Provider HEALTH MAINTENANCE Final Result * Colonoscopy (03/22/2012) [facility] Colonoscopy No Interpretation , Abstracted Anatomical Region Laterality Modality Other Result [facility] Provider HEALTH MAINTENANCE Final Result from Last 3 Months or Most Recently Relevant to Health Maintenance Additional Health Concerns Active Problems Noted Date Diagnosed Date Autogenerated Problem 11/25/2024 Insurance [employer] Care Teams Shrimp Peeling Machine Tender Relationship Specialty Start Date End Date Nica Cage MD [address] [place] [phone] PCP - General Internal Medicine 01/22/24
--- OUTSIDE RECORDS SUMMARY | 2024-12-16 13:42 | XMS_ITS | Encounter Summary ---
Author Organization [facility] Address [address] [place] [address] Care Team Providers Care Industrial Psychology Professor Name Role Phone Nica Cage MD Primary Care Prov ider Encounter Details Date Type Department Care Team (Late Contact Info) Description 02/11/2024 Lab Requisition [facility] - Main Lab [address] [facility] [place] [phone] Jc Nuñez, A[address] [place] [phone] Encounter for screening for malignant neoplasm of [...] 8:00 AM EST Appointment Radiology Department - [address] [phone] 01/31/2025 12:30 PM EST Appointment [facility] Endoscopy [address] [place] [phone] Dany Montelongo MD 175 [facility] [address] [place] [address] documented as of this encounter Visit Diagnoses Diagnosis Encounter for screening for malignant neoplasm of colon documented in this encounter Care Teams Industrial Psychology Professor Relationship Specialty Start Date End Date Nica Cage MD [address] [place] [phone] PCP - General Internal Medicine 01/22/24 documented as of this encounter
[2024-12-16 14:01] LABS: Free T4 (Free Thyroxine) 0.90 ng/dL (0.71-1.85)
== END 2024-12-16 11:18 | disposition home or self-care (01) ==
LOC: HO.LAB 11:17
PROVIDERS: PCP Internal Medicine; Visit Provider Physician Assistant Medical
DX: R53.83 Other fatigue (principal); D64.9 Anemia, unspecified; G47.19 Other hypersomnia
CPT/HCPCS: 36415; 80053; 82172; 82306; 82607; 82728; 82746; 83090; 83540; 83921; 84207; 84439; 84443; 85027